=== PATIENT | male | born 1955 | race Hispanic/Latino ===

== ENCOUNTER 2022-04-10 19:14 | Emergency (ER) | payer OTHER ==
[2022-04-10] MEDS ORDERED: MORPHINE 4 MG/ML SYR ONE (19:40)
[2022-04-10] MEDS ORDERED: NA CHLORIDE 0.9% 1,000 ML ONE (19:40)
[2022-04-10] MEDS ORDERED: TETANUS & DIPHTHERIA TOX,ADULT 0.5 ML VIAL ONE (19:52)
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
[2022-04-10] MEDS ORDERED: DIAZEPAM 5 MG TABLET ONE (21:09)
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
[2022-04-10] MEDS ORDERED: cloNIDine HCL 0.1 MG TAB ONE (21:32)
[2022-04-10 22:31] VITALS: TEMP 97.4
[2022-04-10 22:32] VITALS: O2SAT 99
[2022-04-10 22:33] VITALS: BP 184/99
== END 2022-04-10 21:54 | disposition home or self-care (01) ==
LOC: ER 19:14
DX: S40.022A Contusion of left upper arm, initial encounter (principal); S40.021A Contusion of right upper arm, initial encounter; I10 Essential (primary) hypertension; V59.40XA Driver of pick-up truck or van injured in collision with unspecified motor vehicles in traffic accident, initial encounter; Z23 Encounter for immunization; Z88.6 Allergy status to analgesic agent
CPT/HCPCS: 96361; 82565; 70450; 72125; 71260; 74177; 90471; 90714; 96374; 99284; Q9967; J7030

== ENCOUNTER 2022-09-06 12:27 | Emergency (ER) | payer OTHER ==
--- NOTE | 2022-09-06 13:40 | RAD REPORT ---
EXAM DESCRIPTION: CT - Head Brain Wo Cont - 09/06/2022 1:05 pm CLINICAL HISTORY: HEADACHE. Hypertension COMPARISON: Head C Spine Cap W Con dated 04/10/2022 TECHNIQUE: Noncontrast head CT images ad were obtained without IV contrast. Multiplanar reformats we re generated and reviewed. All CT scans are performed using dose optimization technique as appropriate and may include automated exposure control or mA/KV adjustment according to patient size. FINDINGS: No intracranial hemorrhage, mass, or edema. Midline structures are unremarkable. Normal ventricular caliber for age. Bilateral parasagittal parietal regions of encephalomalacia, larger on the left, with cortical puncta te calcifications, stable since April 2022. These are nonspecific and could relate to sequelae of r emote ischemia or prior infection. Howard-white matter differentiation is otherwise preserved, without evidence of acute infarct. No abnormal extra-axial fluid collections. Mastoid air cells and visualized portions of the paranasal sinuses are clear. No acute bony findings. IMPRESSION: No evidence of an acute intracranial process. Stable chronic findings as above
[2022-09-06 13:41] LABS: Absolute Lymphocytes (CBC) 0.7 K/uL (0.7-4.9); Lymphocytes % 20.4 % (15.3-44.8); MCV 69.6 fL (80-100); MPV 6.8 fL (7.6-11.3); RBC Red Blood Cell Count 3.88 M/uL (4.33-5.43)
--- NOTE | 2022-09-06 13:43 | RAD REPORT ---
EXAM DESCRIPTION: Lu Single View09/06/2022 1:16 pm CLINICAL HISTORY: CHEST PAIN. Hypertension. Headache COMPARISON: No comparisons TECHNIQUE: Portable AP view of the chest. FINDINGS: The lungs are clear. No pneumothorax or effusion. The cardiomediastinal contours are unrem arkable. IMPRESSION: No acute cardiopulmonary process.
[2022-09-06 13:56] LABS: Magnesium 2.4 mg/dL (1.6-2.4); Potassium 3.6 mmol/L (3.5-5.1)
[2022-09-06 14:01] LABS: Troponin High Sensitivity 12.1 pg/mL (<58.9)
--- NOTE | 2022-09-06 14:09 | ER ---
Nurse's Notes [facility] Name: Mason Downey Age: 67 yrs Sex: Male : 1955 Arrival Date: 09/06/2022 Time: 12:30 Bed 17 Private MD: Diagnosis: Essential (primary) hypertension;Chest pain, unspecified;Headache Presentation: 09/06 12:55 Chief complaint: Patient states: Chest pain since last night. Pt reporting high blood ld1 pressure and headache. Upon arrival BP 222/101. Coronavirus screen: At this time, the client does not indicate any symptoms associated with coronavirus-19. Ebola Screen: No symptoms or risks identified at this time. Initial Sepsis Screen: Does the patient meet any 2 criteria? No. Patient's initial sepsis screen is negative. Does the patient have a suspected source of infection? No. Patient's initial sepsis screen is negative. Risk Assessment: Do you want to hurt yourself or someone else? Patient reports no desire to harm self or others. Onset of symptoms was September 06, 2022. 12:55 Method Of Arrival: Ambulatory ld1 12:55 Acuity: MADIHA 3 ld1 Triage Assessment: 12:55 Headache History: Denies prior headaches. General: Appears in no apparent distress. ld1 uncomfortable, Behavior is calm, cooperative, appropriate for age. Pain: Complains of pain in face and chest Pain does not radiate. Pain currently is 8 out of 10 on a pain scale. Quality of pain is described as throbbing, Pain began gradually, 1 day ago. Is continuous, Also complains of no other associated symptoms. EENT: No signs and/or symptoms were reported regarding the EENT system. Neuro: Level of Consciousness is awake, alert, obeys commands, Oriented to person, place, time, situation, Appropriate for age. Cardiovascular: Capillary refill < 3 seconds Patient's skin is warm and dry. Rhythm is sinus rhythm. Respiratory: Airway is patent Respiratory effort is even, unlabored. GI: Abdomen is round non-distended. : No signs and/or symptoms were reported regarding the genitourinary system. Derm: No signs and/or symptoms reported regarding the dermatologic system. Musculoskeletal: No signs and/or symptoms reported regarding the musculoskeletal system. Historical: - Allergies: 12:55 Aleve; ld1 12:55 Aspirin; ld1 12:55 Tylenol; ld1 - Home Meds: 12:55 metoprolol tartrate 37.5 mg Oral tab 1 tab once daily [Active]; ld1 - PMHx: 12:55 GERD; Hypertensive disorder; ld1 - PSHx: 12:55 None; ld1 - Immunization history:: Adult Immunizations up to date, Client reports receiving the 2nd dose of the Covid vaccine. - Social history:: Smoking status: Patient denies any tobacco usage or history of. Patient uses alcohol, on a daily basis. 12+ beers. Screenin:08 [facility] ED Fall Risk Assessment (Adult) History of falling in the last 3 months, db including since admission No falls in past 3 months (0 pts) Confusion or Disorientation No (0 pts) Intoxicated or Sedated No (0 pts) Impaired Gait. 14:18 Abuse screen: Denies threats or abuse. Denies injuries from another. Nutritional db screening: No deficits noted. Tuberculosis screening: No symptoms or risk factors identified. Assessment: 13:04 General: Appears in no apparent distress. comfortable, Behavior is calm, cooperative. db Pain:. Neuro: Level of Consciousness is awake, alert, obeys commands, Oriented to person, place, time, situation. Respiratory: Airway is patent Respiratory effort is even, unlabored, Respiratory pattern is regular, symmetrical. 14:18 Reassessment: Patient appears in no apparent distress at this time. Patient and/or db family updated on plan of care and expected duration. Pain level reassessed. Patient is alert, oriented x 3, equal unlabored respirations, skin warm/dry/pink. Patient states feeling better. Patient states symptoms have improved. Vital Signs: 12:55 BP 222 / 101; Pulse 85; Resp 14; Temp 98.7(O); Pulse Ox 98% on R/A; Weight 70.31 kg; ld1 Height 5 ft. 7 in. (170.18 cm); Pain 8/10; 13:19 BP 170 / 94; Pulse 77; Resp 16; Pulse Ox 99% on R/A; db 14:18 BP 184 / 98; Pulse 76; Resp 16; Pulse Ox 99% on R/A; db 12:55 Body Mass Index 24.28 (70.31 kg, 170.18 cm) ld1 Vitals: 14:18 Cardiac Rhythm Assessment Regular. db ED Course: 12:30 Patient arrived in ED. am2 12:33 Scott Lerner DO is Attending Physician. ms3 12:51 Keisha Reed, RN is Primary Nurse. db 12:55 Triage completed. ld1 12:55 Arm band placed on right wrist. ld1 13:06 CT Head Brain wo Cont In Process Unspecified. EDMS 13:14 EKG done, by ED staff, reviewed by Scott Lerner DO. em1 13:18 XRAY Chest (1 view) In Process Unspecified. EDMS 13:30 Patient has correct armband on for positive identification. Bed in low position. Call db light in reach. Side rails up X 1. Client placed on continuous cardiac and pulse oximetry monitoring. NIBP monitoring applied. Warm blanket given. 13:30 Inserted saline lock: 20 gauge in right antecubital area, using aseptic technique. db Blood collected. 14:18 No provider procedures requiring assistance completed. IV discontinued, intact, db bleeding controlled, No redness/swelling at site. Administered Medications: No medications were administered Medication: 13:19 VIS not applicable for this client. db Outcome: 14:08 Discharge ordered by MD. ms3 14:18 Discharged to home ambulatory, with family. db 14:18 Condition: stable 14:18 Discharge instructions given to patient, Instructed on discharge instructions, follow up and referral plans. 14:20 Patient left the ED. db Signatures: Dispatcher [employer] EDMS Kendell Manning em1 Ancelmo Garciaanda am2 Scott Lerner DO DO ms3 Patricia Luna RN RN ld1 Keisha Reed, RN RN db Corrections: (The following items were deleted from the chart) 13:09 13:04 Reassessment: Patient appears in no apparent distress at this time. Patient db and/or family updated on plan of care and expected duration. Pain level reassessed. Patient is alert, oriented x 3, equal unlabored respirations, skin warm/dry/pink. PATIENT states feels better. Denies dizziness denies pain db 13:09 13:00 BP 139 / 82 Standing; Pulse 72bpm; db db 13:09 12:50 BP 152 / 80 Supine; Pulse 66bpm; Resp 16bpm; Pulse Ox 100% RA; db db 13:09 12:55 BP 148 / 83 Sitting; Pulse 76bpm; db db
--- NOTE | 2022-09-06 14:09 | EDPHYS ---
Physician Documentation [facility] Name: Mason Downey Age: 67 yrs Sex: Male : 1955 Arrival Date: 09/06/2022 Time: 12:30 Bed 17 Private MD: ED Physician Scott Lerner HPI: 09/06 14:09 This 67 yrs old Male presents to ER via Ambulatory with complaints of High ms3 Blood Pressure, Headache. 14:09 67-year-old male with past medical history of hypertension, GERD presents for elevated ms3 blood pressure. Patient's highest noted blood pressure was 222/109. Patient states he took 50 mg of metoprolol 1 hour prior to arrival. Patient notes he has had a headache and chest pain that began last night. Patient rates his chest pain an 8/10 and describes it as indigestion and burning. Patient states he also has a generalized headache that he rates a 10/10. Patient endorses nausea. Patient denies vomiting.. Historical: - Allergies: 12:55 Aleve; ld1 12:55 Aspirin; ld1 12:55 Tylenol; ld1 - Home Meds: 12:55 metoprolol tartrate 37.5 mg Oral tab 1 tab once daily [Active]; ld1 - PMHx: 12:55 GERD; Hypertensive disorder; ld1 - PSHx: 12:55 None; ld1 - Immunization history:: Adult Immunizations up to date, Client reports receiving the 2nd dose of the Covid vaccine. - Social history:: Smoking status: Patient denies any tobacco usage or history of. Patient uses alcohol, on a daily basis. 12+ beers. ROS: 14:09 Constitutional: Negative for fever, and chills. Neck: Negative for injury, pain, and ms3 swelling, Respiratory: Negative for shortness of breath, cough, wheezing, and pleuritic chest pain. 14:09 Neuro: Negative for headache, weakness, numbness, tingling. 14:09 Cardiovascular: Positive for chest pain. 14:09 Abdomen/GI: Positive for indigestion. 14:09 All other systems are negative. Exam: 14:09 Constitutional: This is a well developed, well nourished patient who is awake, alert, ms3 and in no acute distress. Head/Face: Normocephalic, atraumatic. Neck: Trachea midline, no cervical lymphadenopathy. Supple, full range of motion without nuchal rigidity, or vertebral point tenderness. No Meningismus. Chest/axilla: Normal chest wall appearance and motion. Nontender with no deformity. Cardiovascular: Regular rate and rhythm with a normal S1 and S2. No gallops, murmurs, or rubs. Normal PMI, no JVD. No pulse deficits. Respiratory: Lungs have equal breath sounds bilaterally, clear to auscultation and percussion. No rales, rhonchi or wheezes noted. No increased work of breathing, no retractions or nasal flaring. Abdomen/GI: Soft, non-tender, with normal bowel sounds. No distension or tympany. No guarding or rebound. No evidence of tenderness throughout. Skin: Warm, dry with normal turgor. Normal color with no rashes, no lesions, and no evidence of cellulitis. Neuro: Awake and alert, GCS 15, oriented to person, place, time, and situation. Cranial nerves II-XII grossly intact. Motor strength 5/5 in all extremities. Sensory grossly intact. Cerebellar exam normal. Normal gait. 14:12 ECG was reviewed by the Attending Physician. ms3 Vital Signs: 12:55 BP 222 / 101; Pulse 85; Resp 14; Temp 98.7(O); Pulse Ox 98% on R/A; Weight 70.31 kg; ld1 Height 5 ft. 7 in. (170.18 cm); Pain 8/10; 13:19 BP 170 / 94; Pulse 77; Resp 16; Pulse Ox 99% on R/A; db 14:18 BP 184 / 98; Pulse 76; Resp 16; Pulse Ox 99% on R/A; db 12:55 Body Mass Index 24.28 (70.31 kg, 170.18 cm) ld1 MDM: 12:43 Patient medically screened. ms3 13:09 Independent interpretation of the following test(s) in the Emergency Department CT ms3 Scan: My interpretation is CT Head images reviewed by me: Negative for ICH.. 14:09 Differential diagnosis: hypertensive crisis, CVA, intracerebral hemorrhage. Data ms3 reviewed: vital signs, nurses notes, lab test result(s), EKG, radiologic studies, and as a result, I will discharge patient. Consideration of Admission/Observation Escalation of care including admission/observation considered. Patient troponin negative, EKG without ischemia, CT head negative. Counseling: I had a detailed discussion with the patient and/or guardian regarding: the historical points, exam findings, and any diagnostic results supporting the discharge/admit diagnosis, lab results, radiology results, the need for outpatient follow up, to return to the emergency department if symptoms worsen or persist or if there are any questions or concerns that arise at home. ED course: Discussed CT head, chest x-ray, EKG, labs with patient and his son. Patient to follow-up with his primary care physician in 2 to 3 days. Patient and his son understand and agree with plan. All questions were answered. Return precautions discussed include worsening symptoms, or any other concerns. On reevaluation patient is alert and oriented x4, no apparent distress, nontoxic, ambulatory in emergency room, speaking full sentences.. 09/06 12:44 Order name: Basic Metabolic Panel; Complete Time: 14:02 ms3 09/06 12:44 Order name: CBC with Diff ms3 09/06 12:44 Order name: Magnesium; Complete Time: 14:02 ms3 09/06 12:44 Order name: Troponin HS; Complete Time: 14:02 ms3 09/06 12:44 Order name: XRAY Chest (1 view); Complete Time: 13:46 ms3 09/06 12:44 Order name: CT Head Brain wo Cont; Complete Time: 13:46 ms3 09/06 12:44 Order name: EKG; Complete Time: 12:44 ms3 09/06 12:44 Order name: Cardiac monitoring; Complete Time: 12:57 ms3 09/06 12:44 Order name: EKG - Nurse/Tech; Complete Time: 13:14 ms3 09/06 12:44 Order name: IV Saline Lock; Complete Time: 13:04 ms3 09/06 12:44 Order name: Labs collected and sent; Complete Time: 13:04 ms3 09/06 12:44 Order name: O2 Per Protocol; Complete Time: 12:57 ms3 09/06 12:44 Order name: O2 Sat Monitoring; Complete Time: 12:57 ms3 EC:12 Rate is 81 beats/min. Rhythm is regular. QRS [place] is Normal. OK interval is normal. QRS ms3 interval is normal. Clinical impression: NSR w/ Non-specific ST/T Changes. Interpreted by me. Reviewed by me. Administered Medications: No medications were administered Disposition Summary: 09/06/22 14:08 Discharge Ordered Location: Home ms3 Condition: Stable ms3 Diagnosis - Essential (primary) hypertension ms3 - Chest pain, unspecified ms3 - Headache ms3 Followup: ms3 - With: Private Physician - When: 2 - 3 days - Reason: Recheck today's complaints Discharge Instructions: - Discharge Summary Sheet ms3 - Nonspecific Chest Pain, Adult ms3 - General Headache Without Cause ms3 - Hypertension, Adult ms3 Forms: - Medication Reconciliation Form ms3 - Work release form iw - Thank You Letter ms3 - Antibiotic Education ms3 - Prescription Opioid Use ms3 Signatures: Dispatcher [employer] Scott Ramirez DO DO ms3 Patricia Luna, RN RN ld1
[2022-09-06 14:25] VITALS: TEMP 98.7
[2022-09-06 14:26] VITALS: O2SAT 99
[2022-09-06 14:27] VITALS: BP 184/98
[2022-09-06 14:41] LABS: White Blood Cell Scan OK (OK)
[2022-09-06 14:42] LABS: Platelet Estimate ADEQ
[2022-09-06 14:43] LABS: Anisocytosis 1+; Blood Morphology Comment NOTED (NOT SEEN)
--- NOTE | 2022-09-06 18:45 | EKG ---
Test Date: 2022-09-06 Test Time: 13:12:28 Senior Technical Business Analyst: JUDY MEASUREMENT RESULTS: Intervals: Rate: 81 WI: 160 QRSD: 88 QT: 416 QTc: 483 Lutz: P: 81 WI: 160 QRS: 45 T: 38 INTERPRETIVE STATEMENTS: Normal sinus rhythm Prolonged QT Abnormal ECG No previous ECG available for comparison Electronically Signed On 09-06-22 18:41:56 LEAF BINNER by Jez Yeboah
== END 2022-09-06 14:20 | disposition home or self-care (01) ==
LOC: ER 12:27
DX: I10 Essential (primary) hypertension (principal); R07.89 Other chest pain; R51.9 Headache, unspecified; Z88.6 Allergy status to analgesic agent
CPT/HCPCS: 36415; 70450; 71045; 80048; 83735; 84484; 85025; 93005; 99284

== ENCOUNTER 2023-05-07 14:24 | Emergency (ER) | payer OTHER ==
--- OUTSIDE RECORDS SUMMARY | 2023-05-07 15:06 | XMS REPORT | Continuity of Care Document ---
:1955 Author Organization [facility] t Address [address] [place] [address] [place] [id number] Care Team Providers Name Role Phone Unavailable Unavailable Unavailable Problems This patient has no known problems. Allergies, Adverse Reactions, Alerts This patient has no known allergies or adverse reactions. Medications This patient has no known medications. Procedures This patient has no known procedures. Encounters Start End Encounter Admission Attending Care Care Encounter Source Date/Time Date/Time Type Type Clinicians Facility Department ID 2023-03-09 2023-03-09 Outpatient [facility] SFA [id number] Nolan Voss 14:56:04 14:56:04 0830 [facility] Results This patient has no known results.
[2023-05-07 15:21] LABS: Absolute Lymphocytes (CBC) 1.9 K/uL (0.7-4.9); Hematocrit 29.4 % (39.6-49.0); MCV 77.3 fL (80-100); MPV 7.2 fL (7.6-11.3); Platelets 198 thou/uL (152-406); RBC Red Blood Cell Count 3.81 M/uL (4.33-5.43)
[2023-05-07 15:28] LABS: Protime INR 1.04
[2023-05-07 15:31] LABS: Transitional Epithelial <5 /HPF (None Seen); Urine Bacteria None Seen /HPF (<20); Urine Bilirubin NEGATIVE (Negative); Urine Blood 2+ (Negative); Urine Clarity Turbid (Clear); Urine Color Light-Yellow (Yellow); Urine Glucose NEGATIVE (Negative); Urine Mucus Slight /HPF (None Seen); Urine Protein 2+ (Negative); Urine RBC <5 /HPF (None Seen); Urine Urobilinogen Normal (Normal); Urine pH 5.5 (5.0-7.0)
[2023-05-07 15:39] LABS: Barbiturates NEGATIVE (NEGATIVE); Benzodiazepines NEGATIVE (NEGATIVE); Cocaine NEGATIVE (NEGATIVE); METHAMPHETAM NEGATIVE (NEGATIVE); Opiates NEGATIVE (NEGATIVE); Phencyclidine NEGATIVE (NEGATIVE); THC Cannibis NEGATIVE (NEGATIVE)
[2023-05-07 15:39] LABS: ALT/SGPT 47 U/L (16-61); AST/SGOT 69 U/L (15-37); Albumin 3.6 g/dL (3.4-5.0); Alkaline Phosphatase 97 U/L (45-117); BUN Blood Urea Nitrogen 5 mg/dL (7-18); Bicarbonate 23 mEq/L (21-32); Bilirubin Direct 0.2 mg/dL (0-0.2); Bilirubin Indirect, Calculated 0.6 mg/dL (0.2-0.8); Bilirubin Total 0.8 mg/dL (0.2-1.0); Glomerular Filtration Rate 76 ml/min (=/>90); Glucose Level 109 mg/dL (74-106); Potassium 3.7 mEq/L (3.5-5.1); Protein, Total 8.4 g/dL (6.4-8.2); Sodium Level 128 mEq/L (136-145)
[2023-05-07] MEDS ORDERED: THIAMINE 200 MG/2 ML INJ ONE (15:39)
[2023-05-07] MEDS ORDERED: MULTIVITAMINS 10 ML VIAL (INJ) IV ONE (15:39)
[2023-05-07] MEDS ORDERED: FOLIC ACID 5 MG/ML VIAL ONE (15:40)
[2023-05-07] MEDS ORDERED: NA CHLORIDE 0.9% 1,000 ML ONE (15:40)
[2023-05-07 15:58] LABS: Methadone ND (NEGATIVE)
--- NOTE | 2023-05-07 16:24 | ER ---
Nurse's Notes [facility] Name: Mason Downey Age: 68 yrs Sex: Male : 1955 Arrival Date: 05/07/2023 Time: 14:24 Bed 4 Private MD: Diagnosis: Traumatic subdural hemorrhage Presentation: 05/07 14:50 Initial Sepsis Screen: Does the patient meet any 2 criteria? No. Patient's initial ld1 sepsis screen is negative. Does the patient have a suspected source of infection? No. Patient's initial sepsis screen is negative. 14:51 Chief complaint: EMS states: toned out to patient home for swelling to face. Family aa5 reports patient drinking 60 beers over the past 24-48 hours. Coronavirus screen: At this time, the client does not indicate any symptoms associated with coronavirus-19. Ebola Screen: No symptoms or risks identified at this time. Risk Assessment: Do you want to hurt yourself or someone else? Patient reports no desire to harm self or others. Onset of symptoms was May 07, 2023. 14:51 Method Of Arrival: EMS: [facility] aa5 14:51 Acuity: MADIHA 3 aa5 Triage Assessment: 14:50 General: Appears in no apparent distress. comfortable, Behavior is cooperative, ld1 appropriate for age. Pain: Denies pain. EENT: facial swelling. Neuro: Level of Consciousness is awake, alert, obeys commands, Oriented to person, place, time, situation. Cardiovascular: Capillary refill < 3 seconds Patient's skin is warm and dry. Respiratory: Airway is patent Respiratory effort is even, unlabored. : No signs and/or symptoms were reported regarding the genitourinary system. Derm: No signs and/or symptoms reported regarding the dermatologic system. swelling to eyes. Musculoskeletal: No signs and/or symptoms reported regarding the musculoskeletal system. 14:50 GI: Abdomen is round non-distended. ld1 Historical: - Allergies: 14:50 Aleve; aa5 14:50 Aspirin; aa5 14:50 Tylenol; aa5 - PMHx: 14:50 GERD; Hypertensive disorder; aa5 - Immunization history:: Adult Immunizations up to date. - Social history:: Smoking status: Patient denies any tobacco usage or history of. Patient/guardian denies using alcohol. Screenin:53 [facility] ED Fall Risk Assessment (Adult) History of falling in the last 3 months, aa5 including since admission No falls in past 3 months (0 pts). Abuse screen: Denies threats or abuse. Denies injuries from another. Nutritional screening: No deficits noted. Tuberculosis screening: No symptoms or risk factors identified. Assessment: 14:50 Reassessment: See triage assessment. ld1 15:22 Reassessment: Patient appears in no apparent distress at this time. No changes from ld1 previously documented assessment. Patient and/or family updated on plan of care and expected duration. Pain level reassessed. Patient is alert, oriented x 3, equal unlabored respirations, skin warm/dry/pink. Pt intoxicated at this time. Cooperative and calm, unable to stand by self at this moment. Family at bedside. 16:33 Reassessment: No changes from previously documented assessment. Patient and/or family ld1 updated on plan of care and expected duration. Pain level reassessed. Pt displaying signs of anxiety post CT scan. AAOx4. Family at bedside. 16:45 Reassessment: Life flight ETA 28 minutes . jl7 17:20 Reassessment: Patient appears in no apparent distress at this time. No changes from ld1 previously documented assessment. Patient and/or family updated on plan of care and expected duration. Pain level reassessed. Patient is alert, oriented x 3, equal unlabored respirations, skin warm/dry/pink. 17:21 Neuro:. ld1 Vital Signs: 15:21 BP 185 / 99; Pulse 108; Resp 18; Pulse Ox 98% on R/A; aa5 15:21 Weight 75 kg; Height 5 ft. 7 in. ; Pain 0/10; aa5 15:21 Temp 98.3(O); aa5 16:35 BP 153 / 91; Pulse 110; Resp 19; Pulse Ox 97% on R/A; ld1 17:20 BP 174 / 83; Pulse 102; Resp 16; Pulse Ox 100% on R/A; ld1 15:21 Body Mass Index 25.90 (75.00 kg, 170.18 cm) aa5 15:21 Pain Scale: Adult aa5 Glilian Coma Score: 15:21 Eye Response: spontaneous(4). Motor Response: obeys commands(6). Verbal Response: ld1 oriented(5). Total: 15. 17:23 Eye Response: spontaneous(4). Motor Response: obeys commands(6). Verbal Response: ld1 oriented(5). Total: 15. ED Course: 14:50 Patient arrived in ED. aa5 14:50 Arm band placed on right wrist. aa5 14:51 [facility] sb4 14:51 Garrick Hua MD is Attending Physician. sb4 14:53 Triage completed. aa5 14:53 Patient has correct armband on for positive identification. Placed in gown. Bed in low aa5 position. Call light in reach. Side rails up X2. property assessment monitor on. Pulse ox on. NIBP on. Door closed. Noise minimized. Warm blanket given. 14:53 No provider procedures requiring assistance completed. Inserted saline lock: 20 gauge aa5 in left antecubital area, using aseptic technique. Blood collected. 15:21 Straight cath inserted, using sterile technique, 16 Fr. Specimen obtained. Returned aa5 clear yellow urine. Patient tolerated well. 16:21 initiated a transfer with Melissa Gerardo Rn from the [facility] Transfer [place]. eb 16:23 Head Brain Wo Cont CT In Process Unspecified. EDMS 16:26 Patricia Lerner, JOSE M is Primary Nurse. ld1 16:31 connected the neurosurgeon unionmelt operator for [facility] ER with Nikki Hicks for patient transfer consultation. 16:32 administrative approval given by Melissa Gerardo Rn/ patient has been accepted to [facility]/ Dr. Carlos Bailey has accepted the patient in transfer/ report to be called to [phone]. 16:41 Inserted saline lock: 20 gauge in right forearm, using aseptic technique. ls5 17:21 Patient transferred, IV remains in place. ld1 Administered Medications: 15:30 Drug: Banana Bag - (Multivitamin IV 1 amp, NS 0.9% IV 1000 ml, Thiamine IV 100 mg, rs5 foLIC Acid IVPB 1 mg) IV at calculated rate once Route: IV; Rate: calculated rate; Site: left antecubital; Medication: 14:53 VIS not applicable for this client. aa5 Outcome: 16:23 ER care complete, transfer ordered by . sb4 17:20 Transferred by helicopter to [facility], ld1 17:20 Condition: unchanged 17:20 Discharge instructions given to patient, Instructed on the need for transfer, 17:30 Patient left the ED. ld1 Signatures: Dispatcher [employer] EDMS Jailene Stanley RN RN aa5 Jeff Jama RN RN jl7 Yomaira Garcia Lauren, RN RN ld1 Nikki Castillo, Phi Benitez PA-C, RN RN rs5 Magdy Corral ls5 Corrections: (The following items were deleted from the chart) 16:25 14:54 Jailene Stanley RN is Primary Nurse. tom mckenna 16:26 16:26 Primary Nurse role handed off by Jailene Stanley RN ld1 ld1 16:26 14:51 Chief complaint: EMS states: toned out to patient home for swelling to face. ld1 Family reports patient drinking 60 beers over the past 24-48 hours. [facility] 16: 14:50 General: Appears in no apparent distress. comfortable, Behavior is cooperative, ld1 appropriate for age, aa : 14:50 Pain: Denies pain. [facility] 16: 14:50 EENT: facial swelling. [facility] 16: 14:50 Neuro: Level of Consciousness is awake, alert, obeys commands, Oriented to ld1 person, place, time, situation, aa 16: 14:50 Cardiovascular: Capillary refill < 3 seconds Patient's skin is warm and dry. [facility] 16: 14:50 Respiratory: Airway is patent Respiratory effort is even, unlabored, [place] [id number] 16: 14:50 GI: Abdomen is round non-distended, aa5 ld1 16: 14:50 : No signs and/or symptoms were reported regarding the genitourinary system. [id number] 16: 14:50 Derm: No signs and/or symptoms reported regarding the dermatologic system. ld1 swelling to eyes aa 16: 14:50 Musculoskeletal: No signs and/or symptoms reported regarding the musculoskeletal ld1 system. aa5 16: 14:53 Reassessment: See triage assessment [place] [id number] 16:28 15:22 Reassessment: Patient appears in no apparent distress at this time. No changes ld1 from previously documented assessment. Patient and/or family updated on plan of care and expected duration. Pain level reassessed. Patient is alert, oriented x 3, equal unlabored respirations, skin warm/dry/pink. Pt intoxicated at this time. Cooperative and calm, unable to stand by self at this moment. Family at bedside. aa5
--- NOTE | 2023-05-07 16:24 | EDPHYS ---
Physician Documentation [facility] Name: Mason Downey Age: 68 yrs Sex: Male : 1955 Arrival Date: 05/07/2023 Time: 14:24 Bed 4 Private MD: ED Physician Garrick Hua HPI: 05/08 14:14 This 68 yrs old Male presents to ER via EMS with complaints of ETOH Abuse, sb4 Facial Swelling. 14:14 patient presents via EMS altered/intoxicated. family called EMS because he supposedly sb4 has drank at least 60 beers over the past 24 hours, has fallen a few times, and now has facial swelling. patient has no complaints at this time, is not sure why he is here, denies consuming any etoh. Historical: - Allergies: 05/07 14:50 Aleve; aa5 14:50 Aspirin; aa5 14:50 Tylenol; aa5 - PMHx: 14:50 GERD; Hypertensive disorder; aa5 - Immunization history:: Adult Immunizations up to date. - Social history:: Smoking status: Patient denies any tobacco usage or history of. Patient/guardian denies using alcohol. ROS: 05/08 14:14 Constitutional: Negative for fever, chills, and weight loss, sb4 Neuro: Positive for altered mental status, All other systems are negative, Exam: 14:14 Constitutional: This is a well developed, well nourished patient who is awake, alert, sb4 and in no acute distress. Head/Face: Normocephalic, atraumatic. Eyes: Extra-ocular motions intact. Periorbital areas with no swelling, redness, or edema. ENT: Mucous membranes moist. Cardiovascular: Regular rate and rhythm with a normal S1 and S2. Respiratory: Lungs have equal breath sounds bilaterally, clear to auscultation and percussion. No rales, rhonchi or wheezes noted. No increased work of breathing, no retractions or nasal flaring. Abdomen/GI: Soft, non-tender, no distension. Skin: Warm, dry with normal turgor. Normal color with no rashes, no lesions, and no evidence of cellulitis. MS/ Extremity: Pulses equal, no cyanosis. Neurovascular intact. Full, normal range of motion. 14:14 Constitutional: The patient appears unkempt, 14:14 Neuro: 14:14 Neuro: Exam negative for focal neuro deficits, motor deficits, sensory deficits, cerebellar deficits, Vital Signs: 05/07 15:21 BP 185 / 99; Pulse 108; Resp 18; Pulse Ox 98% on R/A; aa5 15:21 Weight 75 kg; Height 5 ft. 7 in. ; Pain 0/10; aa5 15:21 Temp 98.3(O); aa5 16:35 BP 153 / 91; Pulse 110; Resp 19; Pulse Ox 97% on R/A; ld1 17:20 BP 174 / 83; Pulse 102; Resp 16; Pulse Ox 100% on R/A; ld1 15:21 Body Mass Index 25.90 (75.00 kg, 170.18 cm) aa5 15:21 Pain Scale: Adult aa5 Gillian Coma Score: 15:21 Eye Response: spontaneous(4). Motor Response: obeys commands(6). Verbal Response: ld1 oriented(5). Total: 15. 17:23 Eye Response: spontaneous(4). Motor Response: obeys commands(6). Verbal Response: ld1 oriented(5). Total: 15. MDM: 14:51 Patient medically screened. sb4 05/08 14:14 Differential diagnosis: alcohol intoxication, closed head injury, dehydration. Data sb4 reviewed: vital signs, nurses notes, EMS record, lab test result(s), EKG, radiologic studies, I have discussed the patient's presentation/case with the attending Emergency Department Physician; and as a result, I will. Management of patient was discussed with the following: Hospitalist: neurosurgery at [facility], accepts patient. Historians other than the Patient: Daughter/Son: daughter. Care significantly affected by the following chronic conditions: Hypertension. Counseling: I had a detailed discussion with the patient and/or guardian regarding the historical points, exam findings, and any diagnostic results supporting the discharge/admit diagnosis, the presence of at least one elevated blood pressure reading (>120/80) during this emergency department visit, lab results, radiology results, the need to transfer to another facility, for higher level of care, [facility] does not immediately have the required specialist. 05/07 14:56 Order name: Acetaminophen; Complete Time: 16:06 sb4 05/07 14:56 Order name: Basic Metabolic Panel; Complete Time: 16:06 sb4 05/07 14:56 Order name: CBC with Diff; Complete Time: 15:45 sb4 05/07 14:56 Order name: ETOH Level; Complete Time: 16:06 sb4 05/07 14:56 Order name: Hepatic Function; Complete Time: 16:06 sb4 05/07 14:56 Order name: PT-INR; Complete Time: 15:45 sb4 05/07 14:56 Order name: Ptt, Activated; Complete Time: 15:45 sb4 05/07 14:56 Order name: Salicylate; Complete Time: 15:45 sb4 05/07 14:56 Order name: Urinalysis w/ reflexes; Complete Time: 15:45 sb4 05/07 14:56 Order name: Urine Drug Screen; Complete Time: 16:06 sb4 05/07 15:02 Order name: Troponin HS; Complete Time: 15:45 sb4 05/07 15:01 Order name: Head Brain Wo Cont CT; Complete Time: 16:36 sb4 05/07 14:56 Order name: EKG; Complete Time: 14:57 sb4 05/07 14:56 Order name: EKG - Nurse/Tech; Complete Time: 15:01 sb4 05/07 14:56 Order name: IV Saline Lock; Complete Time: 15:01 sb4 05/07 14:56 Order name: Labs collected and sent; Complete Time: 15:01 sb4 05/07 14:56 Order name: Suicide Screening ([place]); Complete Time: 15:01 sb4 EC/28 18:31 Rate is 111 beats/min. Rhythm is regular, Sinus tachycardia. DE interval is normal at sb4 116 msec. QRS interval is normal at 80 msec. QT interval is normal at 462 msec. No Q waves. T waves are Normal. No ST changes noted. Clinical impression: Sinus tachycardia and No evidence of ischemia. Interpreted by me. Reviewed by me. Administered Medications: 15:30 Drug: Banana Bag - (Multivitamin IV 1 amp, NS 0.9% IV 1000 ml, Thiamine IV 100 mg, rs5 foLIC Acid IVPB 1 mg) IV at calculated rate once Route: IV; Rate: calculated rate; Site: left antecubital; Disposition Summary: 05/07/23 16:23 Transfer Ordered Notes: Transfer Location: [facility] sb4 Reason: Higher level of care sb4 Condition: Serious sb4 Problem: new sb4 Symptoms: are unchanged sb4 Accepting Physician: Dr. Bailey(05/07/23 17:30) ld1 Diagnosis - Traumatic subdural hemorrhage sb4 Forms: - Medication Reconciliation Form sb4 - SBAR form sb4 Addendum: 05/09/2023 10:51 Co-signature as Attending Physician, Garrick Hua MD I reviewed the patient's care e c2 provided by Advanced Practice Provider \T\ agree w/ the diagnosis \T\ care plan. I personally saw the pt \T\ performed a substantive portion of the visit, incldng all aspects of the (History/Exam/Medical Decision Making). Signatures: Dispatcher [employer] Jailene Rodríguez, RN RN aa5 Patricia Lerner RN RN ld1 Nikki Castillo, PAAlanaC PAAlanaC sb4 Phi Buitrago RN RN rs5 Garrick Hua MD MD ec2 Corrections: (The following items were deleted from the chart) 05/07 16:25 14:57 Facial Bones W/ Con \T\ MPR+CT.RAD.BRZ ordered. EDME EDMS 16:32 16:23 trauma sb4 sb4 17:30 16:32 Dr. Bailey sb4 ld1
--- NOTE | 2023-05-07 16:35 | RAD REPORT ---
EXAM DESCRIPTION: CT - Head Brain Wo Cont - 05/07/2023 4:21 pm CLINICAL HISTORY: CONFUSED COMPARISON: Head Brain Wo Cont dated 09/06/2022 TECHNIQUE: All CT scans are performed using dose optimization technique as appropriate and may inclu de automated exposure control or mA/KV adjustment according to patient size. FINDINGS: Acute extra-axial hemorrhage along the left cerebral convexity primarily along the left fr ontal lobe where there is the most mass-effect. This measures 2.5 cm in maximal thickness and has a c onvex border. It does cross the sutures and is present along the left parietal lobe. Xfbd-ip-qzavo mi dline shift is present with subfalcine herniation and effacement of the left lateral ventricle. Mild right lateral ventricular dilatation with hypoattenuation along the right occipital horn that could r eflect early transependymal flow of CSF. There is approximately 1 cm of cers-ua-izbet shift. The paranasal sinuses and mastoids are clear. The calvarium is intact. IMPRESSION: Acute extra-axial hemorrhage along the left frontoparietal lobes with zsri-xu-ovtso midl ine shift and evidence of subfalcine herniation. Though the hemorrhage does have a convex component, it crosses the suture lines and is most consistent with an acute subdural hematoma. No skull fracture identified. Discussed with Dr. Hua by Dr. Cespedes at 1630 on 05/07/23
[2023-05-07 17:35] VITALS: TEMP 98.3
[2023-05-07 17:39] VITALS: BP 174/83; O2SAT 100
--- NOTE | 2023-05-10 07:58 | EKG ---
Test Date: 2023-05-07 Test Time: 14:58:06 Financial Aid Advisor: Zora PADGETT MEASUREMENT RESULTS: Intervals: Rate: 111 DE: 116 QRSD: 80 QT: 340 QTc: 462 Otto: P: 60 DE: 116 QRS: 34 T: 16 INTERPRETIVE STATEMENTS: Sinus tachycardia Otherwise normal ECG Compared to ECG 09/06/2022 13:12:28 Sinus rhythm no longer present Prolonged QT interval no longer present Electronically Signed On 05-10-23 07:52:45 CDT by Jez Yeboah
== END 2023-05-07 17:30 | disposition short-term general hospital (02) ==
LOC: ER 14:24
DX: S06.5X0A Traumatic subdural hemorrhage without loss of consciousness, initial encounter (principal); I10 Essential (primary) hypertension; Z88.6 Allergy status to analgesic agent
CPT/HCPCS: 93005; 85025; 81001; 80048; 36415; 85610; 80076; 85730; 84484; 80307; 70450; 51702; 96374; 99285; 80143; 80179; 82077; J3411; J7030

== ENCOUNTER 2024-01-04 08:50 | Day surgery (SDC) | payer OTHER ==
[2024-01-04 09:02] LABS: Absolute Basophils 0.1 K/uL (0-0.5); Absolute Eosinophils 0.4 K/uL (0-0.5); Absolute Lymphocytes (CBC) 2.9 K/uL (0.7-4.9); Absolute Monocytes 0.7 K/uL (0.1-1.3); Absolute Neutrophil 2.7 K/uL (1.8-8.0); Eosinophils % 5.6 % (0-4.4); Hemoglobin 14.8 g/dL (13.6-17.9); Lymphocytes % 42.8 % (15.3-44.8); MCH 27.4 pg (27.0-35.0); MPV 8.1 fL (7.6-11.3); Monocytes % 9.8 % (3.3-12.3); Neutrophils % 40.8 % (41.7-73.7); Nucleated Red Blood Cells % 0.2 % (0-0); Platelets 266 thou/uL (152-406); RBC Red Blood Cell Count 5.42 M/uL (4.33-5.43); Red Cell Distribution Width 18.4 % (12.1-15.2)
--- NOTE | 2024-01-04 09:12 | RAD REPORT ---
EXAM DESCRIPTION: Lu Garcia (2 Views)01/04/2024 8:49 am CLINICAL HISTORY: Preop for cholecystectomy COMPARISON: 2022 FINDINGS: The lungs appear clear of acute infiltrate. The heart is normal size IMPRESSION: No acute abnormalities displayed
[2024-01-04 09:15] LABS: ALT/SGPT 22 U/L (16-61); AST/SGOT 14 U/L (15-37); Albumin 3.6 g/dL (3.4-5.0); Albumin/Globulin Ratio 0.8 (1.1-1.8); Alkaline Phosphatase 97 U/L (45-117); BUN Blood Urea Nitrogen 15 mg/dL (7-18); Bicarbonate 31 mEq/L (21-32); Bilirubin Total 0.8 mg/dL (0.2-1.0); Globulin 4.5 g/dL (2.3-3.5); Glomerular Filtration Rate 64 ml/min (=/>90); Glucose Level 109 mg/dL (74-106); Lipase 47 U/L (13-75); Protein, Total 8.1 g/dL (6.4-8.2); Sodium Level 137 mEq/L (136-145)
[2024-01-04 09:18] LABS: Bilirubin Direct < 0.2 mg/dL (0-0.2); Bilirubin Indirect, Calculated 0.6 mg/dL (0.2-0.8)
[2024-01-04] MEDS: Ringers Lactate 1,000 ML IV ONE (09:40)
[2024-01-04] MEDS ORDERED: LIDOCAINE 2% MPF 5 ML VIAL ONE (11:20)
[2024-01-04] MEDS ORDERED: MIDAZOLAM HCL 2 MG/2 ML INJ ONE (11:20)
[2024-01-04] MEDS ORDERED: ROCURONIUM 50 MG/5 ML VIAL IV ONE (11:20)
[2024-01-04] MEDS ORDERED: propofoL 200 MG/20 ML VIAL IV ONE (11:20)
[2024-01-04] MEDS ORDERED: FENTANYL CITR 100 MCG/2 ML ONE (11:20)
[2024-01-04] MEDS ORDERED: ONDANSETRON 4 MG/2 ML VIAL ONE (11:52)
[2024-01-04] MEDS: CEFOXITIN SODIUM 1 GM/VIAL ONE (12:10)
[2024-01-04] MEDS ORDERED: GLYCOPYRROLATE 0.2 MG/ML SYR ONE ×2 (12:15→12:41)
[2024-01-04] MEDS ORDERED: LABETALOL 20 MG/4ML SYRINGE IV ONE (12:37)
[2024-01-04] MEDS ORDERED: NEOSTIGMINE 1 MG/ML -10 ML VIAL ONE (12:41)
--- NOTE | 2024-01-04 12:48 | P.BOP ---
Preoperative diagnosis: symptomatic cholelithiasis, umbilical hernia Postoperative diagnosis: same Primary procedure: 1. Laparoscopic cholecystectomy Secondary procedure: 2. Open repair of umbilical hernia Driver Recruiter: Clarissa Deleon) Estimated blood loss: <10cc Specimen: sac Findings: as above Anesthesia: General Complications: None Transferred to: Recovery Room Condition: Good
[2024-01-04] MEDS: MORPHINE 4 MG/ML SYR ONE (13:20)
[2024-01-04] MEDS: HYDROMORPHONE HCL 1 MG/ML INJ ONE ×2 (13:35→13:45)
[2024-01-04] MEDS ORDERED: Ringers Lactate 1,000 ML IV ONE (13:36)
[2024-01-04 13:54] VITALS: O2SAT 95
[2024-01-04] MEDS: HYDROCODONE/APAP 7.5/325 MG TAB ONE (14:25)
[2024-01-04 15:28] VITALS: BP 124/87; TEMP 96.2
--- NOTE | 2024-01-04 23:41 | OP ---
Date of Procedure: 01/04/2024 Surgeon: Salvador Manning MD Analysis Analyst: GUSTAVO Rouse. Preoperative Diagnoses: Symptomatic cholelithiasis, umbilical hernia. Postoperative Diagnoses: Symptomatic cholelithiasis, umbilical hernia. Procedures: Laparoscopic cholecystectomy and open repair of umbilical hernia. Estimated Blood Loss: Less than 10 mL. Specimen: Hernia sac and gallbladder. Anesthesia: General plus local. Indications: This is the case of a 68-year-old patient, comes to us with above diagnoses, fully expl ained the benefits, alternatives, and risks of laparoscopic possible open cholecystectomy and umbilic al hernia repair, which include, but not limited to infection, bleeding, damage to adjacent structure s, anesthesia complication, recurrence of hernia, NV, and even . He also understands this may n ot relieve any symptoms. He might need more than one surgical intervention. He understood, signed a consent. Procedure In Detail: The patient was brought to the operating room and placed in supine position. A nesthesia was done without complication. Abdominal area was prepped and draped in sterile fashion. Local anesthesia was applied followed by sharp incision of the skin in the periumbilical region. Inc ision was carried down until we found the hernia sac. The hernia sac was removed away from umbilical skin and then the hernia sac was carefully ligated. Fascial edges were clean. Vicryl #1 was placed inside the fascia. Julius trocar was carefully introduced. No bleeding was obtained. I placed 3 m ore trocars, 5 mm each one of them, 1 in the epigastric area, 2 in the right upper quadrant under dir ect visualization. This allowed me to put a grasper in the fundus of the gallbladder, another graspe r in the infundibulum, and the gallbladder was retracted in the inferolateral fashion exposing the tr iangle of Calot. Cystic duct and cystic artery were clearly isolated free circumferentially, and a c onnection between those and the gallbladder were clearly identified. I proceeded to ligate those pos ing 3 clips proximal, 1 clip distal, ligation in middle. Same was done with the cystic artery. No b ile leak. No bleeding. The gallbladder was removed from liver using Bovie cauterizer and removed fr om abdominal cavity using EndoCatch through the umbilical incision. The area was then inspected. No bile leak. No bleeding. The pneumoperitoneum was deflated. Fascia was closed with #1 Vicryl after the trocars were removed under direct visualization and then the fascia was closed with #1 Vicryl an d umbilical hernia and also the skin was closed with 3-0 chromic and Steri-Strips. Sponge counts and instrument counts correct. The patient tolerated the procedure well. The patient was sent to [facility] in stable condition. FORTUNATO/ANASTACIO Voice ID: [id number] Report ID: [id number]
--- NOTE | 2024-01-04 23:41 | DS ---
Date of Discharge: 01/04/2024 Diagnoses: Symptomatic cholelithiasis, umbilical hernia. Procedures: Laparoscopic cholecystectomy, open repair of umbilical hernia. Disposition: Home. Condition: Stable. Activity: As tolerated. No heavy lifting. Follow up in my office in 1 week. Call for appointment at [phone]. FORTUNATO/ANASTACIO Voice ID: [id number] Report ID: [id number]
--- NOTE | 2024-01-05 14:11 | EKG ---
Test Date: 2024-01-04 Test Time: 08:40:26 Pacs Specialist: THUY MEASUREMENT RESULTS: Intervals: Rate: 58 HI: 156 QRSD: 92 QT: 426 QTc: 418 [place]: P: 65 HI: 156 QRS: -5 T: 49 INTERPRETIVE STATEMENTS: Sinus bradycardia Otherwise normal ECG Compared to ECG 05/07/2023 14:58:06 Sinus tachycardia no longer present Electronically Signed On 01-05-24 14:07:32 CDT by Jez Yeboah
== END 2024-01-04 15:13 | disposition home or self-care (01) ==
LOC: OR 08:50
PROVIDERS: ATTEND Surgery
PROC: 0FT44ZZ Resection of Gallbladder, Percutaneous Endoscopic Approach (ICD-10-PCS; principal; 2024-01-04 12:15)
PROC: 0WQF0ZZ Repair Abdominal Wall, Open Approach (ICD-10-PCS; 2024-01-04 12:15)
DX: K80.10 Calculus of gallbladder with chronic cholecystitis without obstruction (principal); K42.9 Umbilical hernia without obstruction or gangrene
CPT/HCPCS: 47562; 49591; 93005; 85025; 80048; 36415; 80076; 88302; 88304; 83690; 71046; J2704; J2710; J2001; J2250; J3010; J1170 ×2; J0694; J2405; J7120 ×2

== ENCOUNTER 2024-01-05 05:52 | Emergency (ER) | payer OTHER ==
--- OUTSIDE RECORDS SUMMARY | 2024-01-05 06:09 | XMS REPORT | Continuity of Care Document ---
Author Name Unknown Address [address] [facility] [address] [place] [address] [facility] Address [address] [facility] [address] [place] [address] Care Team Providers Care Utility Sales Representative Name Role Phone Rochelle Unger Primary Care Physician DENIA LEWIS NATASHA Attending Clinician Unava ilable [id number] Attending Clinician Unavailable COLLEEN BARILLAS Attending Clinician UnavailCOLLEEN Crump Attending Clinician UnavailDebbie Munguia Attending Clinician Unavailable Colleen Barillas MD Attending Clinician FAVIO MALIK Attending Clinician Unavailable Ash OTLindsay A Attending Clinician Unavail able Catracho Blevins PTElodia Attending Clinician Un available Doctor Unassigned, [place] Attending Clinician U navailDENIA Zimmer NATASHA Admitting Clinician Unava ilable [id number] Admitting Clinician Unavailable Payers Payer Name Policy Type Policy Number Effective Date Expirati on Date Source [facility] [id number] [employer] MEDICARE ADVANTAGE [id number] 2022 00:00:00 [facility] WELLMED [id number] 2022 00:00:00 Allergies, Adverse Reactions, Alerts Allergy Name Allergy Type Status Severity Reaction(s) Onset Date Inactive Date Treating Clinician Comments Source Nsaids Propensi ty to adverse reaction s Active Other 2022-07 00:00: 00 [facility] NO KNOWN ALLERGIE S Drug Class Active [facility] Social History Social Habit Start Date Stop Date Quantity Comments Source [facility] intake 2023-07-14 00:00:00 2023-07-14 00:00:00 Ex-drinker (finding) [facility] Tobacco use and exposure 2023-05-30 00:00:00 2023-05-30 00:00:00 Smokeless tobacco non-user [facility] Alcohol intake 2023-05-30 00:00:00 2023-05-30 00:00:00 Ex-drinker (finding) [facility] Alcohol Comment 2023-05-30 00:00:00 2023-05-30 00:00:00 socially [facility] History of Social function 2023-05-30 00:00:00 2023-05-30 00:00:00 [facility] Sex Ass[birth year] At 1955 00:00:00 1955 00:00:[address] [facility] Smoking Status Start Date Stop Date Source Tobacco smoking consumption unknown [facility] Never smoked tobacco [facility] Medications Ordered Medication Name Filled Medication Name Start Date Stop Date Current Medication? Ordering Clinician Indication Dosage Frequency Signature (SIG) Comments Components Source docusate sodium (Colace) 100 MG capsule 07-14 08:36: 50 Yes 100mg Q.5D Take 100 mg by mouth in the morning and 100 mg in the evening. [facility] ascorbic acid (Vitamin C) 500 MG tablet 07-14 08:36: 50 Yes 500mg QD Take 500 mg by mouth 1 (one) time each day. [facility] gabapentin (Neurontin) 100 MG capsule 07-14 00:00: 00 07-14 05:59 :00 No [id number] 100mg Q.5D Take 1 capsule (100 mg total) by mouth in the morning and 1 capsule (100 mg total) in the evening. [facility] docusate sodium (Colace) 100 MG capsule 2022-07 15:12: 26 Yes 100mg Q.5D Take 100 mg by mouth in the morning and 100 mg in the evening. [facility] ascorbic acid (Vitamin C) 500 MG tablet 2022-07 15:12: 26 Yes 500mg QD Take 500 mg by mouth 1 (one) time each day. [facility] scopolamine (Transderm- Scop) 1 MG/3DAYS patch 72 hour 2022-07 00:00: 00 Yes APPLY BEHIND EAR EVERY 3 DAYS FOR MOTION SICKNESS [facility] naltrexone (Depade) 50 MG tablet 2022-07 00:00: 00 Yes 50mg QD Take 50 mg by mouth 1 (one) time each day. [facility] Ascorbic Acid (vitamin C) 500 MG tablet 2022-07 00:00: 00 Yes 500mg QD Take 500 mg by mouth 1 (one) time each day. [facility] carvedilol (Coreg) 25 MG tablet 2022-07 00:00: 00 Yes 25mg Q.5D Take 25 mg by mouth every 12 (twelve) hours. [facility] lisinopril 20 MG tablet 2022-07 00:00: 00 Yes 40mg QD Take 40 mg by mouth 1 (one) time each day. [facility] potassium chloride CR (K-Tab) 20 MEQ ER tablet 2022-07 00:00: 00 Yes 20meq Take 20 mEq by mouth every night. [facility] sodium chloride 1 g tablet 2022-07 00:00: 00 Yes 3g Q.[id number] 3D Take 3 g by mouth in the morning and 3 g at noon and 3 g in the evening. [facility] thiamine (Vitamin B-1) 100 MG tablet 2022-07 00:00: 00 Yes 100mg QD Take 100 mg by mouth 1 (one) time each day. [facility] Zinc 220 (50 Zn) MG capsule 2022-07 00:00: 00 Yes 1{tbl} QD Take 1 tablet by mouth 1 (one) time each day. [facility] triamcinolo ne (Kenalog) 0.1 % cream 03-10 00:00: 00 Yes APPLY 1 APPLICATIO N ON THE SKIN TWICE A DAY APPLY TO AFFECTED AREAS [facility] terbinafine (LamISIL) 250 MG tablet 03-09 00:00: 00 Yes 250mg QD Take 250 mg by mouth 1 (one) time each day. [facility] valACYclovi r (Valtrex) 1 g tablet 03-09 00:00: 00 Yes 1000mg Q.[id number] 3D Take 1,000 mg by mouth in the morning and 1,000 mg at noon and 1,000 mg in the evening. [facility] sucralfate (Carafate) 1 g tablet 18 00:00: 00 Yes 1g Q.5D Take 1 g by mouth in the morning and 1 g before bedtime. [facility] finasteride (Proscar) 5 MG tablet 12-04 00:00: 00 Yes 5mg QD Take 5 mg by mouth 1 (one) time each day. [facility] metoprolol tartrate (Lopressor) 50 MG tablet 12-04 00:00: 00 Yes 50mg Q.5D Take 50 mg by mouth in the morning and 50 mg before bedtime. [facility] pantoprazol e (ProtoNix) 40 MG EC tablet 11-27 00:00: 00 Yes 40mg QD Take 40 mg by mouth 1 (one) time each day. [facility] Vital Signs Vital Name Observation Time Observation Value Comments S ource Systolic blood pressure 2023-07-14 14:34:00 111 mm[Hg] [facility] Diastolic blood pressure 2023-07-14 14:34:00 73 mm[Hg] [facility] Heart rate 2023-07-14 14:34:00 73 /min [facility] alth Body temperature 2023-07-14 14:34:00 36.67 Angelica [facility] Body height 2023-07-14 14:34:00 167.6 cm [facility] Body weight 2023-07-14 14:34:00 72.235 kg [facility] BMI 2023-07-14 14:34:00 25.70 kg/m2 [facility] Systolic blood pressure 2023-05-30 21:14:00 115 mm[Hg] [facility] Diastolic blood pressure 2023-05-30 21:14:00 76 mm[Hg] [facility] Heart rate 2023-05-30 21:14:00 66 /min [facility] Body weight 2023-05-30 21:14:00 67.586 kg [facility] BMI 2023-05-30 21:14:00 23.34 kg/m2 [facility] Oxygen saturation in Arterial blood by Pulse oximetry 2023-05-30 21:14:00 96 /min [facility] Procedures Procedure Date / Time Performed Performing Clinicia n Source ASSIGNMENT OF BENEFITS 2023-06-21 19:10:33 Docto r Unassigned, [place] [facility] Encounters Start Date/Time End Date/Time Encounter Type Admission Type Attending [facility] Facility Care Department Encounter ID Source 2023-05-14 09:05:13 Outpatient 3 [place] [id number] 2023-05-13 15:23:49 Outpatient 3 DENIA LEWIS [place] [id number] 2023-05-11 11:38:44 Outpatient 3 [id number] [place] [id number] 2023-09-01 14:00:00 2023-09-01 15:24:07 Outpatient R COLLEEN BARILLAS CRAIG [facility] [id number] [facility] 2023-09-01 14:00:00 2023-09-01 15:24:07 Ancillary Visit Debbie Kim [facility] 1..840.114 350.1.13.10 4.2.7.2.[id number] [facility] 2023-08-24 15:00:00 2023-08-24 15:31:56 Ancillary Visit Debbie Kim Craig L [facility] 1..840.114 350.1.13.10 4.2.7.2.[id number] [facility] 2023-08-17 15:00:00 2023-08-17 16:14:18 Ancillary Visit Debbie Kim Craig L [facility] 1..840.114 350.1.13.10 4.2.7.2.[id number] [facility] 2023-08-10 16:00:00 2023-08-10 16:47:28 Ancillary Visit Judy Colleen Alcazar Zora [facility] 1.2.840.114 350.1.13.10 4.2.7.2.[id number] [facility] 2023-08-03 16:00:00 2023-08-03 16:55:48 Ancillary Visit Judy Colleen Alcazar Zora [facility] 1.2.840.114 350.1.13.10 4.2.7.2.[id number] [facility] 2023-07-27 15:00:00 2023-07-27 15:58:10 Ancillary Visit Debbie Kim Craig Zora [facility] 1.2.840.114 350.1.13.10 4.2.7.2.[id number] [facility] 2023-07-20 16:00:00 2023-07-20 16:39:47 Ancillary Visit Judy Debbie BarillasColleen [facility] 1.2.840.114 350.1.13.10 4.2.7.2.[id number] [facility] 2023-07-14 11:00:00 2023-07-14 11:00:00 Outpatient FAVIO MALIK [facility] [id number] [facility] 2023-07-14 10:00:00 2023-07-14 10:00:00 Office Visit FAVIO MALIK [facility] [address] 1.2.840.114 350.1.13.58 9.2.7.2.686 [id number] [facility] 2023-07-13 14:00:00 2023-07-13 15:21:49 Outpatient COLLEEN FREEMAN CRAIG [facility] [id number] [facility] 2023-07-13 14:00:00 2023-07-13 15:21:49 Ancillary Visit Judy Debbie Barillas Colleen Zora [facility] 1.2.840.114 350.1.13.10 4.2.7.2.[id number] [facility] 2023-07-06 14:00:00 2023-07-06 15:04:03 Outpatient R COLLEEN BARILLAS CRAIG [facility] [id number] [facility] 2023-07-06 14:00:00 2023-07-06 15:04:03 Ancillary Visit Debbie Kim Craig L [facility] 1.2.840.114 350.1.13.10 4.2.7.2.[id number] [facility] 2023-06-29 14:00:00 2023-06-29 15:03:49 Ancillary Visit Debbie Kim Craig L [facility] 1.2.840.114 350.1.13.10 4.2.7.2.[id number] [facility] 2023-06-22 15:00:00 2023-06-22 16:28:47 Ancillary Visit Debbie Kim Craig Zora [facility] 1.2.840.114 350.1.13.10 4.2.7.2.[id number] [facility] 2023-06-21 13:45:00 2023-06-21 14:36:31 Outpatient R COLLEEN BARILLAS CRAIG [facility] [id number] [facility] 2023-06-21 13:45:00 2023-06-21 14:36:31 Ancillary Visit Lindsay Aleman, Colleen Zora [facility] 1.2840.114 350.1.13.10 4.2.7.2.[id number] [facility] 2023-06-21 13:00:00 2023-06-21 14:36:15 Outpatient R COLLEEN BARILLAS CRAIG [facility] [id number] [facility] 2023-06-21 13:00:00 2023-06-21 14:36:15 Ancillary Visit Catracho Gen Elodia Nargis Colleen L [facility] 1.284.114 350.1.13.10 4.2.7.2.[id number] [facility] 2023-06-21 00:00:00 2023-06-21 00:00:00 Orders Only Doctor Unassigned, [place] [facility] 1.0.114 350.1.13.10 4.2.7.2.[id number] [facility] 2023-06-06 10:00:00 2023-06-06 10:00:00 Outpatient FAVIO MALIK [facility] [id number] [facility] 2023-05-30 14:30:00 2023-05-30 14:30:00 Office Visit FAVIO MALIK [facility] [address] 1.284.114 350.1.13.58 9.2.7.2.686 [id number] [facility] 2023-05-17 17:37:00 2023-05-26 15:30:00 Inpatient 3 [place] [id number] 2023-05-10 00:00:00 2023-05-10 00:00:00 Charges Favio Malik [facility] [address] 1.2840.114 350.1.13.58 9.2.7.2.686 [id number] [facility] 2023-05-07 04:00:00 2023-05-07 04:00:00 Outpatient FAVIO MALIK [facility] [id number] [facility] 2023-03-09 14:56:04 2023-03-09 14:56:04 Outpatient SFA SFA [id number] Bipin Zuñiga Results Test Description Test Time Test Comments Results Result Co mments Source [facility]2023-05-26 13:20:00* Test Item Value Reference Range Interpretation Comme nts WHITE BLOOD CELL COUNT (test code = 46857712) 5.6 Thousand/uL 3.8-10.8 N RED BLOOD CELL COUNT (test code = 61348730) 3.36 Million/uL 4.20-5.80 L HEMOGLOBIN (test code = 12819383) 8.7 g/dL 13.2-17.1 L HEMATOCRIT (test code = 45752408) 28.3 % 38.5-50.0 L MCV (test code = 05395286) 84.2 fL 80.0-100.0 N MCH (test code = 97271593) 25.9 pg 27.0-33.0 L MCHC (test code = 17810393) 30.7 g/dL 32.0-36.0 L RDW (test code = 88098780) 16.9 % 11.0-15.0 H PLATELET COUNT (test code = 80881618) 543 Thousand/uL 140-400 H MPV (test code = 55613127) 11.2 fL 7.5-12.5 N ABSOLUTE NEUTROPHILS (test code = 98152394) 2156 cells/uL 5956-0356 N ABSOLUTE LYMPHOCYTES (test code = 15242737) 2733 cells/uL 850-3900 N ABSOLUTE MONOCYTES (test cod e = 53964363) 594 cells/uL 200-950 N ABSOLUTE EOSINOPHILS (test code = 59584389) 90 cells/uL 15-500 N ABSOLUTE BASOPHILS (test cod e = 08727441) 28 cells/uL 0-200 N NEUTROPHILS (test code = 87400489) 38.5 % N LYMPHOCYTES (test code = 86131764) 48.8 % N MONOCYTES (test code = 60939479) 10.6 % N EOSINOPHILS (test code = 82414794) 1.6 % N BASOPHILS (test code = 51232845) 0.5 % N [facility] [id number] 11:04:00* Test Item Value Reference Range Interpretation Comme nts GLUCOSE (test code = 12918525) 95 mg/dL 65-99 N Fasting referenc e interval UREA NITROGEN (BUN) (test code = 95996653) 11 mg/dL 7-25 N CREATININE (test code = 44531809) 0.90 mg/dL 0.70-1.35 N EGFR (test code = 51923503) 94 mL/min/1.73m2 >=60 N BUN/CREATININE RATIO (test code = 12476410) SEE NOTE: (calc) 6-22 N Not Reported: BUN and Creatinine are within reference range. SODIUM (test code = 82434574) 133 mmol/L 135-146 L POTASSIUM (test code = 16708872) 4.9 mmol/L 3.5-5.3 N CHLORIDE (test code = 80903477) 99 mmol/L 98-110 N CARBON DIOXIDE (test code = 44948473) 24 mmol/L 20-32 N CALCIUM (test code = 15184162) 9.0 mg/dL 8.6-10.3 N [facility] (DIFF/PLT)2023-05-23 11:04:00* Test Item Value Reference Range Interpretation Comme nts WHITE BLOOD CELL COUNT (test code = 45151243) 5.6 Thousand/uL 3.8-10.8 N RED BLOOD CELL COUNT (test code = 20982403) 3.28 Million/uL 4.20-5.80 L HEMOGLOBIN (test code = 28519122) 8.5 g/dL 13.2-17.1 L HEMATOCRIT (test code = 69713380) 27.4 % 38.5-50.0 L MCV (test code = 15735998) 83.5 fL 80.0-100.0 N MCH (test code = 91568564) 25.9 pg 27.0-33.0 L MCHC (test code = 58192037) 31.0 g/dL 32.0-36.0 L RDW (test code = 50277171) 17.0 % 11.0-15.0 H PLATELET COUNT (test code = 50966951) 597 Thousand/uL 140-400 H MPV (test code = 84626631) 11.0 fL 7.5-12.5 N ABSOLUTE NEUTROPHILS (test code = 32937981) 2229 cells/uL 5080-0966 N ABSOLUTE LYMPHOCYTES (test code = 46258189) 2498 cells/uL 850-3900 N ABSOLUTE MONOCYTES (test cod e = 56206977) 734 cells/uL 200-950 N ABSOLUTE EOSINOPHILS (test code = 70033671) 112 cells/uL 15-500 N ABSOLUTE BASOPHILS (test cod e = 54971035) 28 cells/uL 0-200 N NEUTROPHILS (test code = 92334543) 39.8 % N LYMPHOCYTES (test code = 31016039) 44.6 % N MONOCYTES (test code = 73056105) 13.1 % N EOSINOPHILS (test code = 49281021) 2.0 % N BASOPHILS (test code = 11144023) 0.5 % N [facility] [id number] 18:58:00* Test Item Value Reference Range Interpretation Comme nts HEMOGLOBIN A1c (test code = 39513522) 5.5 % of total Hgb <5.7 N For the purpose of screening for the presence ofdiabetes: <5.7% Consistent with the absence of diabetes5.7-6.4% Consistent with increased risk for diabetes (prediabetes)> or =6.5% Consistent with diabetes This assay result is consistent with a decreased riskof diabetes. Currently, no consensus exists regarding use ofhemoglobin A1c for diagnosis of diabetes in children. According to [place] [employer] Association (ADA)guidelines, hemoglobin A1c <7.0% represents optimalcontrol in non- diabetic patients. Differentmetrics may apply to specific patient populations. Standards of Medical Care in Diabetes(ADA). [facility] MET [id number] 15:22:00* Test Item Value Reference Range Interpretation Comme nts GLUCOSE (test code = 46979511) 100 mg/dL 65-99 H Fasting referenc e interval For someone without known diabetes, a glucose valuebetween 100 and 125 mg/dL is consistent withprediabetes and should be confirmed with afollow-up test. UREA NITROGEN (BUN) (test code = 98659380) 12 mg/dL 7-25 N CREATININE (test code = 29651836) 0.77 mg/dL 0.70-1.35 N EGFR (test code = 89462633) 98 mL/min/1.73m2 >=60 N BUN/CREATININE RATIO (test code = 17728119) SEE NOTE: (calc) 6-22 N Not Reported: BUN an d Creatinine are within reference range. SODIUM (test code = 83438042) 134 mmol/L 135-146 L POTASSIUM (test code = 87859891) 4.5 mmol/L 3.5-5.3 N CHLORIDE (test code = 31760027) 96 mmol/L 98-110 L CARBON DIOXIDE (test code = 75433156) 25 mmol/L 20-32 N CALCIUM (test code = 82965404) 9.1 mg/dL 8.6-10.3 N [facility] (DIFF/PLT)2023-05-19 15:22:00* Test Item Value Reference Range Interpretation Comme nts WHITE BLOOD CELL COUNT (test code = 97382443) 8.9 Thousand/uL 3.8-10.8 N RED BLOOD CELL COUNT (test code = 92280670) 3.08 Million/uL 4.20-5.80 L HEMOGLOBIN (test code = 01513480) 8.0 g/dL 13.2-17.1 L HEMATOCRIT (test code = 70082931) 26.0 % 38.5-50.0 L MCV (test code = 43850370) 84.4 fL 80.0-100.0 N MCH (test code = 70859463) 26.0 pg 27.0-33.0 L MCHC (test code = 59011962) 30.8 g/dL 32.0-36.0 L RDW (test code = 46772210) 17.7 % 11.0-15.0 H PLATELET COUNT (test code = 34617718) 388 Thousand/uL 140-400 N MPV (test code = 35260992) 11.2 fL 7.5-12.5 N ABSOLUTE NEUTROPHILS (test code = 93767896) 4859 cells/uL 8127-5625 N ABSOLUTE LYMPHOCYTES (test code = 31861694) 2715 cells/uL 850-3900 N ABSOLUTE MONOCYTES (test cod e = 54421671) 1210 cells/uL 200-950 H ABSOLUTE EOSINOPHILS (test code = 43449850) 89 cells/uL 15-500 N ABSOLUTE BASOPHILS (test cod e = 64516471) 27 cells/uL 0-200 N NEUTROPHILS (test code = 59594524) 54.6 % N LYMPHOCYTES (test code = 59737206) 30.5 % N MONOCYTES (test code = 60229380) 13.6 % N EOSINOPHILS (test code = 89708603) 1.0 % N BASOPHILS (test code = 56232210) 0.3 % N [facility] [id number] 16:31:00* Test Item Value Reference Range Interpretation Comme nts GLUCOSE (test code = 52265473) 127 mg/dL 65-99 H Fasting referenc e interval For someone without known diabetes, a glucosevalue >125 mg/dL indicates that they may havediabetes and this should be confirmed with afollow-up test. UREA NITROGEN (BUN) (test code = 53189794) 15 mg/dL 7-25 N CREATININE (test code = 66323615) 0.84 mg/dL 0.70-1.35 N EGFR (test code = 77564285) 96 mL/min/1.73m2 >=60 N BUN/CREATININE RATIO (test code = 42626462) SEE NOTE: (calc) 6-22 N Not Reported: BUN and Creatinine are within reference range. SODIUM (test code = 96637018) 137 mmol/L 135-146 N POTASSIUM (test code = 24713265) 4.7 mmol/L 3.5-5.3 N CHLORIDE (test code = 95171760) 105 mmol/L 98-110 N CARBON DIOXIDE (test code = 71770804) 25 mmol/L 20-32 N CALCIUM (test code = 94829514) 8.8 mg/dL 8.6-10.3 N PROTEIN, TOTAL (test code = 96001916) 6.1 g/dL 6.1-8.1 N ALBUMIN (test code = 77406283) 3.3 g/dL 3.6-5.1 L GLOBULIN (test code = 71165519) 2.8 g/dL (calc) 1.9-3.7 N ALBUMIN/GLOBULIN RATIO (test code = 49974145) 1.2 (calc) 1.0-2.5 N BILIRUBIN, TOTAL (test code = 93231688) 0.4 mg/dL 0.2-1.2 N ALKALINE PHOSPHATASE (test code = 51280672) 84 U/L 35-144 N AST (test code = 18153744) 29 U/L 10-35 N ALT (test code = 70802232) 37 U/L 9-46 N [facility] WITH [id number] 16:31:00* Test Item Value Reference Range Interpretation Comme nts INR (test code = 88966384) 1.0 N Reference Range 0.9-1.1Moderate-intensity Warfarin Therapy 2.0-3.0Higher-intensity Warfarin Therapy 3.0-4.0 PT (test code = 67205892) 10.6 sec 9.0-11.5 N For additional information, please refer [email or web address] (This link is being provided for informational/educational purposes only.) [facility]PLT[facility]2023-05-18 16:31:00* Test Item Value Reference Range Interpretation Comme nts WHITE BLOOD CELL COUNT (test code = 10736235) 10.0 Thousand/uL 3.8-10.8 N RED BLOOD CELL COUNT (test code = 75270628) 2.95 Million/uL 4.20-5.80 L HEMOGLOBIN (test code = 96256820) 7.8 g/dL 13.2-17.1 L HEMATOCRIT (test code = 44122819) 24.7 % 38.5-50.0 L MCV (test code = 89091847) 83.7 fL 80.0-100.0 N MCH (test code = 56664163) 26.4 pg 27.0-33.0 L MCHC (test code = 88048594) 31.6 g/dL 32.0-36.0 L RDW (test code = 02320679) 17.7 % 11.0-15.0 H PLATELET COUNT (test code = 05128028) 343 Thousand/uL 140-400 N MPV (test code = 57167369) 11.9 fL 7.5-12.5 N ABSOLUTE NEUTROPHILS (test code = 49468650) 5150 cells/uL 9437-2315 N ABSOLUTE LYMPHOCYTES (test code = 83850011) 3180 cells/uL 850-3900 N ABSOLUTE MONOCYTES (test code = 86146888) 1550 cells/uL 200-950 H ABSOLUTE EOSINOPHILS (test code = 02850450) 90 cells/uL 15-500 N ABSOLUTE BASOPHILS (test code = 52293338) 30 cells/uL 0-200 N NEUTROPHILS (test code = 85598991) 51.5 % N LYMPHOCYTES (test code = 43751750) 31.8 % N MONOCYTES (test code = 18140436) 15.5 % N EOSINOPHILS (test code = 76723804) 0.9 % N BASOPHILS (test code = 77750888) 0.3 % N [facility]
[2024-01-05] MEDS ORDERED: NA CHLORIDE 0.9% 1,000 ML ONE (06:58)
[2024-01-05 07:08] LABS: Absolute Lymphocytes (CBC) 1.4 K/uL (0.7-4.9); Absolute Monocytes 2.9 K/uL (0.1-1.3); Absolute Neutrophil 17.3 K/uL (1.8-8.0); Basophils % 0.1 % (0-1.3); Eosinophils % 0.1 % (0-4.4); Hematocrit 38.7 % (39.6-49.0); Hemoglobin 12.8 g/dL (13.6-17.9); Lymphocytes % 6.5 % (15.3-44.8); MCH 27.4 pg (27.0-35.0); MCHC 32.9 g/dL (32.0-36.0); MCV 83.4 fL (80-100); MPV 8.4 fL (7.6-11.3); Monocytes % 13.2 % (3.3-12.3); Neutrophils % 80.1 % (41.7-73.7); Nucleated Red Blood Cells % 0.1 % (0-0); Platelets 220 thou/uL (152-406); RBC Red Blood Cell Count 4.65 M/uL (4.33-5.43); Red Cell Distribution Width 18.2 % (12.1-15.2)
[2024-01-05 07:14] LABS: PT Prothrombin Time 13.5 SECONDS (9.4-12.5); PTT, Activated Partial Thromb 30.9 SECONDS (24.3-36.9); Protime INR 1.23
[2024-01-05 07:24] LABS: Albumin/Globulin Ratio 0.8 (1.1-1.8); Anion Gap 10.2 mEq/L (5.0-15.0); Bilirubin Total 1.4 mg/dL (0.2-1.0); Potassium 4.2 mEq/L (3.5-5.1); Troponin High Sensitivity 13.3 pg/mL (<58.9)
[2024-01-05] MEDS ORDERED: VANCOMYCIN 1 GM/VIAL ONE (08:00)
[2024-01-05] MEDS ORDERED: VANCOMYCIN 500 MG/VIAL ONE (08:01)
[2024-01-05] MEDS ORDERED: CEFEPIME 2 GM VIAL ONE (08:01)
[2024-01-05] MEDS ORDERED: NA CHLORIDE 0.9% 100 ML ONE ×2 (08:01→08:54)
[2024-01-05] MEDS ORDERED: NA CHLORIDE 0.9% 250 ML ONE (08:01)
--- NOTE | 2024-01-05 08:02 | RAD REPORT ---
EXAM DESCRIPTION: CT - Head Brain Wo Cont - 01/05/2024 7:20 am CLINICAL HISTORY: SEIZURE Headache, drowsiness COMPARISON: Head Brain Wo Cont dated 05/07/2023; Head Brain Wo Cont dated 09/06/2022; Chest Abdomen P zeinab W Cont dated 01/05/2024 TECHNIQUE: All CT scans are performed using dose optimization technique as appropriate and may inclu de automated exposure control or mA/KV adjustment according to patient size. FINDINGS: Very small focus of hyperdensity is seen along the left subdural space measuring 7 mm is n oted (image 20/35).Postsurgical changes are noted left cerebral hemisphere with moderate gliosis in t he left frontal region.No areas of brain edema or evidence of midline shift. The paranasal sinuses and mastoids are clear. IMPRESSION: 7 mm focus of hyperdensity along the left subdural space as detailed could be a small am ount of blood. No midline shift is seen. Postsurgical changes are seen on the left with left frontal gliosis.
--- NOTE | 2024-01-05 08:05 | RAD REPORT ---
EXAM DESCRIPTION: CT - Chest Abdomen Pelvis W Cont - 01/05/2024 7:20 am CLINICAL HISTORY: Chest and abdomen pain. abd pain post op GB + herenia;Productive cough COMPARISON: No comparisons TECHNIQUE: Approximately 100 mL nonionic IV contrast was administered to the patient. All CT scans are performed using dose optimization technique as appropriate and may include automated exposure control or mA/KV adjustment according to patient size. FINDINGS: Moderate atelectasis is present in both posterior lung bases.Small hiatal hernia.No pleura l or pericardial effusion.No intrathoracic adenopathy.Mild cardiomegaly. Mild diffuse fatty liver is present. Cholecystectomy clips. The spleen, pancreas, adrenal glands and left kidney are normal. Right kidney contains a cyst superiorly measuring 5.3 cm. No bowel obstruction, free air, free fluid or abscess. Normal appendix. Prominent sigmoid diverticulo sis coli of the sigmoid colon is present. No diverticulitis is seen. No pathologic lymphadenopathy in the abdomen or pelvis. Moderate fat containing left inguinal hernia. No worrisome osseous finding. IMPRESSION: Moderate atelectasis in both lung bases is present posteriorly. Mild fatty liver. Prominent sigmoid diverticulosis coli without diverticulitis. Recommend nonemergent follow-up colonos copy if not recently performed.
[2024-01-05 08:24] LABS: Blood Morphology Comment NOT SEEN (NOT SEEN); Platelet Estimate ADEQ; White Blood Cell Scan OK (OK)
[2024-01-05] MEDS ORDERED: LEVETIRACETAM 500 MG/5 ML VIAL IV ONE (08:54)
--- NOTE | 2024-01-05 09:29 | EDPHYS ---
Physician Documentation [facility] Name: Mason Downey Age: 68 yrs Sex: Male : 1955 Arrival Date: 01/05/2024 Time: 05:52 Bed 6 Private MD: ED Physician Dilcia Shearer HPI: 01/04 06:37 This 68 yrs old Male presents to ER via Unassigned with unknown complaint. sp3 06:37 68-year-old male with history of CHF, intracranial hemorrhage April 2023, and now sp3 postop day 1 from cholecystectomy and umbilical hernia repair by Dr. Manning who now presents to the ED with chief complaint seizure, altered mental status, shortness of breath and continued abdominal pain since surgery. EMS reports 101 Fahrenheit fever. Family also reports that he had multiple episodes of emesis prior to discharge yesterday after the surgery. Unknown if patient has aspirated. Patient currently states he is weak and does not remember the seizure event. Dried blood and tongue laceration reported. He currently denies headache, neck pain, chest pain but does endorse shortness of breath and continued postsurgical abdominal pain. No peripheral edema noted. No rash or bleeding. No prior history of seizures. Review of systems otherwise negative.. Historical: - Allergies: 06:21 Aleve; ha1 06:21 Aspirin; ha1 06:21 NSAIDS; ha1 09:03 Lisinopril; kc6 - PMHx: 06:21 GERD; Hypertensive disorder; brain bleed (June 2023); ha1 - PSHx: 06:21 Cholecystectomy; ha1 - Immunization history:: Adult Immunizations up to date. - Infectious Disease History:: Denies. - Social history:: Smoking status: Patient denies any tobacco usage or history of. ROS: 06:40 Constitutional: Negative for fever, chills, and weight loss, Eyes: Negative for injury, sp3 pain, redness, and discharge, Neck: Negative for injury, pain, and swelling, Cardiovascular: Negative for chest pain, palpitations, and edema, Back: Negative for injury and pain, MS/Extremity: Negative for injury and deformity, Skin: Negative for injury, rash, and discoloration, Psych: Negative for depression, anxiety, suicide ideation, homicidal ideation, and hallucinations, Allergy/Immunology: Negative for hives, rash, and allergies, Endocrine: Negative for neck swelling, polydipsia, polyuria, polyphagia, and marked weight changes, 06:40 All other systems are negative, Exam: 06:40 Constitutional: This is a well developed, well nourished patient who is awake, alert, sp3 and in no acute distress. Head/Face: Normocephalic, atraumatic. Eyes: Pupils equal round and reactive to light, extra-ocular motions intact. Lids and lashes normal. Conjunctiva and sclera are non-icteric and not injected. Cornea within normal limits. Periorbital areas with no swelling, redness, or edema. Neck: Trachea midline, no thyromegaly or masses palpated, and no cervical lymphadenopathy. Supple, full range of motion without nuchal rigidity, or vertebral point tenderness. No Meningismus. Chest/axilla: Normal chest wall appearance and motion. Nontender with no deformity. No lesions are appreciated. Back: No spinal tenderness. No costovertebral tenderness. Full range of motion. Skin: Warm, dry with normal turgor. Normal color with no rashes, no lesions, and no evidence of cellulitis. MS/ Extremity: Pulses equal, no cyanosis. Neurovascular intact. Full, normal range of motion. Neuro: Awake and alert, GCS 15, oriented to person, place, time, and situation. Cranial nerves II-XII grossly intact. Motor strength 5/5 in all extremities. Sensory grossly intact. Cerebellar exam normal. Normal gait. Psych: Awake, alert, with orientation to person, place and time. Behavior, mood, and affect are within normal limits. 06:40 Respiratory: Small tongue laceration noted without need for repair with dried blood in the mouth. Coarse breath sounds bilaterally. Abdomen soft diffusely tender without peritoneal signs, distention rebound or guarding. Patient tachycardic in the 115 range., 06:48 ECG was reviewed by the Attending Physician. EKG demonstrates sinus tachycardia at 105 sp3 bpm with normal intervals, normal QRS, slightly leftward axis and nonspecific diffuse ST's ST changes without evidence of acute ischemia. Vital Signs: 06:43 BP 119 / 76; Pulse 102; Resp 20; Temp 99.8; Pulse Ox 94% on 3 lpm NC; Weight 79 kg; rg5 Pain 4/10; 07:33 BP 139 / 79; Pulse 93; Resp 18 S; Pulse Ox 98% on 5 lpm NC; kc6 07:45 BP 126 / 74; Pulse 90; Resp 14; Pulse Ox 100% on 5 lpm NC; db 08:00 BP 127 / 75; Pulse 87; Resp 15; Pulse Ox 100% on NC; db 08:15 BP 124 / 88; Pulse 86; Resp 14; Pulse Ox 100% on 5 lpm NC; db 08:30 BP 130 / 80; Pulse 86; Resp 16; Pulse Ox 100% on 5 lpm NC; db 09:06 BP 154 / 85; Pulse 87; Resp 16 S; Temp 98.7(O); Pulse Ox 97% on 4 lpm NC; kc6 10:16 BP 136 / 70; Pulse 87; Resp 17 S; Pulse Ox 97% on 4 lpm NC; kc6 06:43 Pain Scale: Adult rg5 NIH Stroke Scale Scores: 09:04 NIHSS Score: 0 kc6 MDM: 06:36 Patient medically screened. sp3 06:41 Data reviewed: vital signs, nurses notes, EMS record, old medical records, lab test sp3 result(s), EKG, radiologic studies. ED course: 68-year-old male with PMH above now status post op day 1 from cholecystectomy and umbilical hernia repair by Dr. Manning now with new onset seizure, shortness of breath, dyspnea and postsurgical abdominal pain. Differential diagnosis includes electrolyte abnormality inducing seizure, recurrent intracranial hemorrhage, pneumonia, aspiration pneumonia, sepsis, other intra-abdominal postsurgical complication, among others. Workup will be broad and will include CT scan of the head, CT scan of the chest abdomen pelvis with IV contrast, laboratory values putting lactate, urine analysis and general supportive care. Fluid bolus also ordered. Will hold on antibiotics till workup is complete. Patient will be signed out to daytime physician for reevaluation and final disposition with probable admission and/or consult to Dr. Manning.. 09:25 Management of patient was discussed with the following: [employer] Investigator: 68-year-old gb1 male status post cholecystectomy with hiatal hernia repair yesterday by Dr. Manning presented with an acute seizure with a tongue laceration. On CT scan of the brain it does show a subdural hematoma which is concerning for possible residual from a subdural in April 2023, however with the patient's clinical presentation today I have to presume that it is a new focal hemorrhage in the left subdural space. I discussed the case with Dr. Mendiola the accepting emergency physician [facility] as well as Dr. Lennon the neuro ICU clinical medical transcriptionist. The patient has been loaded with IV Keppra and will be transported to [facility] emergency department by ambulance. I have updated the family at the bedside and they are compliant with the plan of care moving forward.. 09:25 Management of patient was discussed with the following: [employer] Investigator: Another gb1 consideration as the patient did have general anesthesia yesterday which may have possibly lowered the seizure threshold at that chronic subdural focus.. 01/04 06:36 Order name: Blood Culture Adult (2) sp3 01/04 06:36 Order name: CBC with Diff; Complete Time: 08:39 sp3 01/04 06:36 Order name: CMP; Complete Time: 07:41 sp3 01/04 06:36 Order name: Lactate w/ 2H reflex if indic.; Complete Time: 08:39 3 01/04 06:36 Order name: Protime (+inr); Complete Time: 07:41 sp3 01/04 06:36 Order name: Ptt, Activated; Complete Time: 07:41 sp3 01/04 06:56 Order name: BNP; Complete Time: 07:41 sp3 01/04 06:57 Order name: Troponin High Sensitivity; Complete Time: 07:41 EDMS 01/04 07:18 Order name: CBC Smear Scan; Complete Time: 08:39 EDMS 01/04 09:42 Order name: Ghost Lactate-NO COLLECT Timer EDMS 01/04 06:36 Order name: CT Chest, Abdomen, Pelvis - W/Contrast; Complete Time: 08:39 sp3 01/04 06:36 Order name: CT Head Brain wo Cont; Complete Time: 08:39 sp3 01/04 06:36 Order name: EKG; Complete Time: 06:37 sp3 01/04 06:36 Order name: Cardiac monitoring; Complete Time: 06:49 sp3 01/04 06:36 Order name: EKG - Nurse/Tech; Complete Time: 06:49 sp3 01/04 06:36 Order name: IV Saline Lock - Large Bore; Complete Time: 06:42 sp3 01/04 06:36 Order name: Labs collected and sent; Complete Time: 06:49 sp3 01/04 06:36 Order name: O2 Per Protocol; Complete Time: 06:42 sp3 01/04 06:36 Order name: O2 Sat Monitoring; Complete Time: 06:42 sp3 01/04 06:36 Order name: Vital Signs; Complete Time: 06:49 sp3 01/04 06:36 Order name: NPO; Complete Time: 06:49 sp3 01/04 06:36 Order name: Seizure Precautions; Complete Time: 06:49 sp3 Administered Medications: 06:57 Drug: NS 0.9% IV (30 ml/kg) 30 ml/kg IV at bolus once; Sepsis Protocol Route: IV; Rate: ha1 bolus; Site: left antecubital; 08:52 Follow up: Response: No adverse reaction; IV Status: Completed infusion; IV Intake: kc6 2000ml 08:16 Drug: vancoMYCIN IVPB 20 mg/kg IVPB once; once over 2 hours; not to exceed 2 grams; kc6 (mix in 250 to 500mL NS) Route: IVPB; Site: left antecubital; 09:26 Follow up: Response: No adverse reaction; IV Status: Completed infusion; IV Intake: kc6 250ml 08:16 Drug: Cefepime IVPB 2 grams IVPB at 200 ml/hr once over 30 mins; (mix in NS 100 mL) kc6 Route: IVPB; Rate: 200 ml/hr; Infused Over: 30 mins; Site: right antecubital; 08:51 Follow up: Response: No adverse reaction; IV Status: Completed infusion; IV Intake: kc6 100ml 09:03 Drug: Keppra IV 1500 mg IV at bolus once Route: IV; Rate: bolus; Site: right hand; kc6 09:26 Follow up: Response: No adverse reaction; IV Status: Completed infusion; IV Intake: kc6 100ml Disposition: 09:25 Co-signature as Attending Physician, Dilcia Shearer MD. gb1 Disposition Summary: 01/05/24 09:29 Transfer Ordered Notes: Transfer Location: [facility] gb1 Reason: Higher level of care gb1 Condition: Fair gb1 Problem: new gb1 Symptoms: are unchanged gb1 Accepting Physician: Dr. Dariusz Mendiola(01/05/24 10:20) kc6 Diagnosis - Nontraumatic subdural hemorrhage, unspecified gb1 - Other seizures gb1 Forms: - Medication Reconciliation Form gb1 - SBAR form gb1 Critical care time excluding procedures: 09:25 Critical care time: Bedside Care: 45 minutes, Consultation: 60 minutes, Family gb1 Intervention: 20 minutes. Total time: 125 minutes NIH Stroke Scale - NIH Stroke Score Date: 01/05/2024 Time: 09:04 Total Score = 0 10. Dysarthria (speech clarity - read or repeat words) - 0(Normal) 11. Extinction and Inattention (visual/tactile/auditory/spatial/personal) - 0(No abnormality) 1a. Level of Consciousness (LOC) - 0(Alert) 1b. Level of Consciousness (LOC) (Month \T\ Age) - 0(Both) 1c. LOC Commands (Open \T\ Closes Eyes/Cross Roller) - 0(Both) 2. Best Gaze (Lateral Gaze Paresis) - 0(Normal) 3. Visual Field Loss - 0(No visual loss) 4. Facial Palsy - 0(Normal) 5a. Left Arm: Motor (10-second hold) - 0(No drift) 5b. Right Arm: Motor (10-second hold) - 0(No drift) 6a. Left Leg: Motor (5-second hold - always test supine) - 0(No drift) 6b. Right Leg: Motor (5-second hold - always test supine) - 0(No drift) 7. Limb Ataxia (finger/nose \T\ heel/betancourt - test with eyes open) - 0(Absent) 8. Sensory Loss (pinprick arms/legs/face) - 0(Normal) 9. Best Language: Aphasia (description/naming/reading) - 0(No aphasia) Initials: kc6 Signatures: Dispatcher [employer] EDMS Braden Chávez MD MD sp3 Geeta Waldrop RN RN ha1 Nanette Krause RN RN kc6 Dilcia Shearer MD MD gb1 Corrections: (The following items were deleted from the chart) 06:37 06:37 BLOOD CULTURE*+BA.LAB.BRZ ordered. EDMS EDMS 06:37 06:37 CBC+H.LAB.BRZ ordered. EDMS EDMS 06:37 06:37 COMPREHENSIVE METABOLIC PANEL+C.LAB.BRZ ordered. EDMS EDMS 06:37 06:37 LACTATE+C.LAB.BRZ ordered. EDMS EDMS 06:37 06:37 PROTIME (+INR)+COAG.LAB.BRZ ordered. EDMS EDMS 06:37 06:37 PTT, ACTIVATED+COAG.LAB.BRZ ordered. EDMS EDMS 06:37 06:37 Urinalysis+U.LAB.BRZ ordered. EDMS EDMS 06:56 06:40 Troponin High Sensitivity+C.LAB.BRZ ordered. EDMS EDMS 09:04 06:21 Allergies: Tylenol; ha1 kc6 10:20 09:29 Dr. Dariusz Mendiola gb1 kc6
--- NOTE | 2024-01-05 09:29 | ER ---
Nurse's Notes [facility] Name: Mason Downey Age: 68 yrs Sex: Male : 1955 Arrival Date: 01/05/2024 Time: 05:52 Bed 6 Private MD: Diagnosis: Nontraumatic subdural hemorrhage, unspecified;Other seizures Presentation: 01/04 06:21 Chief complaint: EMS states: Family members report he was shaking a lot and biting his 1 tongue. after he became shortness of breath, diaphoretic, and vomiting. Elevated temperature at 101.1. had surgery yesterday of hernia repair and gallbladder removal. On our arrival oxygen saturation at 80% in room air. oxygen saturation at 95% on nonrebreather. 06:21 Coronavirus screen: Vaccine status:. Ebola Screen: No symptoms or risks identified at [facility] this time. Initial Sepsis Screen: Does the patient meet any 2 criteria? No. Patient's initial sepsis screen is negative. Does the patient have a suspected source of infection? No. Patient's initial sepsis screen is negative. Risk Assessment: Do you want to hurt yourself or someone else? Patient reports no desire to harm self or others. Onset of symptoms was January 05, 2024. 06:21 Method Of Arrival: EMS: [facility] 06:21 Acuity: MADIHA 2 ha1 Historical: - Allergies: 06:21 Aleve; ha1 06:21 Aspirin; ha1 06:21 NSAIDS; ha1 09:03 Lisinopril; kc6 - PMHx: 06:21 GERD; Hypertensive disorder; brain bleed (June 2023); ha1 - PSHx: 06:21 Cholecystectomy; ha1 - Immunization history:: Adult Immunizations up to date. - Infectious Disease History:: Denies. - Social history:: Smoking status: Patient denies any tobacco usage or history of. Screenin:21 Abuse screen: Denies threats or abuse. Denies injuries from another. Nutritional ha1 screening: No deficits noted. Tuberculosis screening: No symptoms or risk factors identified. 06:21 [facility] ED Fall Risk Assessment (Adult) History of falling in the last 3 months, [facility] including since admission Yes- single mechanical fall (1 pt) Confusion or Disorientation Yes (5 pts) Intoxicated or Sedated No (0 pts) Impaired Gait Yes (1 pt) Mobility Assist Device Used Yes (1 pt) Altered Elimination Score/Fall Risk Level 3 or more points = High Risk Oriented to surroundings, Maintained a safe environment, Educated pt \T\ family on fall prevention, incl call for assistance when getting out of bed, Hourly rounding (assess needs \T\ fall precautionary measures) done. 09:04 VAN Screening: Arm Drift: Patient shows no arm weakness. Patient is VAN negative. kc6 Visual Disturbance: No visual disturbance noted. Aphasia: No aphasia noted. Neglect: No neglect noted. Marzena Swallow Protocol Brief Cognitive Screen What is your name? Normal, Where are you right now? Normal, What year is it? Normal. Oral Mechanism Examination Facial Symmetry: Normal, Motion: Normal, Lip Closure: Normal, Oral Mechanism Result: Normal. 3 oz Water Swallow Challenge: Pt able to drink all water without stopping, coughing, choking or throat clearing: Yes Result: PASS MD Notified: Dilcia Shearer MD. Assessment: 07:32 General: Appears in no apparent distress. comfortable, well groomed, well developed, kc6 Behavior is calm, cooperative, appropriate for age. Pain: Denies pain. Neuro: Level of Consciousness is awake, alert, obeys commands, Oriented to person, place, time, situation, Appropriate for age Research Rn Spec are equal bilaterally Moves all extremities. Full function Speech is normal, Facial symmetry appears normal, Pupils are PERRLA, Intact Babinski is positive Seizure activity reported prior to arrival. Cardiovascular: Capillary refill < 3 seconds. Respiratory: Airway is patent Trachea midline Respiratory effort is even, unlabored, Respiratory pattern is regular, symmetrical. GI: No signs and/or symptoms were reported involving the gastrointestinal system. : No signs and/or symptoms were reported regarding the genitourinary system. EENT: No signs and/or symptoms were reported regarding the EENT system. Derm: Skin is healthy with good turgor, Skin is dry, Skin is normal, Skin temperature is warm Wound noted right upper quadrant and right lower quadrant Wound is clean and dry, without redness, swelling or drainage. gauze dressing with tape in place. Musculoskeletal: No signs and/or symptoms reported regarding the musculoskeletal system. Circulation, motion, and sensation intact. Capillary refill < 3 seconds, Range of motion: intact in all extremities. 08:32 Reassessment: Patient appears in no apparent distress at this time. No changes from kc6 previously documented assessment. Patient and/or family updated on plan of care and expected duration. Pain level reassessed. Patient is alert, oriented x 3, equal unlabored respirations, skin warm/dry/pink. 08:52 Reassessment: Dr. Manning \T\ Dr. Shearer at bedside speaking with pt and family. kc6 09:32 Reassessment: Patient appears in no apparent distress at this time. No changes from kc6 previously documented assessment. Patient and/or family updated on plan of care and expected duration. Pain level reassessed. Patient is alert, oriented x 3, equal unlabored respirations, skin warm/dry/pink. 09:46 Reassessment: nurse to nurse report given to JOSE M Gonzalez at [facility]. kc6 10:16 Reassessment: Patient appears in no apparent distress at this time. No changes from kc6 previously documented assessment. Patient and/or family updated on plan of care and expected duration. Pain level reassessed. Patient is alert, oriented x 3, equal unlabored respirations, skin warm/dry/pink. Vital Signs: 06:43 BP 119 / 76; Pulse 102; Resp 20; Temp 99.8; Pulse Ox 94% on 3 lpm NC; Weight 79 kg; rg5 Pain 4/10; 07:33 BP 139 / 79; Pulse 93; Resp 18 S; Pulse Ox 98% on 5 lpm NC; kc6 07:45 BP 126 / 74; Pulse 90; Resp 14; Pulse Ox 100% on 5 lpm NC; db 08:00 BP 127 / 75; Pulse 87; Resp 15; Pulse Ox 100% on NC; db 08:15 BP 124 / 88; Pulse 86; Resp 14; Pulse Ox 100% on 5 lpm NC; db 08:30 BP 130 / 80; Pulse 86; Resp 16; Pulse Ox 100% on 5 lpm NC; db 09:06 BP 154 / 85; Pulse 87; Resp 16 S; Temp 98.7(O); Pulse Ox 97% on 4 lpm NC; kc6 10:16 BP 136 / 70; Pulse 87; Resp 17 S; Pulse Ox 97% on 4 lpm NC; kc6 06:43 Pain Scale: Adult rg5 NIH Stroke Scale Scores: 09:04 NIHSS Score: 0 kc6 ED Course: 06:21 Patient arrived in ED. kmf 06:21 Patient has correct armband on for positive identification. Placed in gown. Bed in low ha1 position. Call light in reach. Side rails up X 1. 06:36 Braden Chávez MD is Attending Physician. sp3 06:46 Triage completed. ha1 06:53 First set of blood cultures drawn. oe 06:57 CMP Sent. ha1 06:57 CBC with Diff Sent. ha1 06:57 Protime (+inr) Sent. ha1 06:57 Ptt, Activated Sent. ha1 07:00 Oxygen administration via nasal cannula \T\ 5L/min. kc6 07:00 Report received from Geeta Waldrop RN \T\ JOSE M Levi. kc6 07:00 shelter monitor on. Pulse ox on. NIBP on. Door closed. Noise minimized. Lights dimmed. kc6 Pillow given. 07:00 Arm band placed on. kc6 07:07 Attending Physician role handed off by Braden Chávez MD gb1 07:07 Dilcia Shearer MD is Attending Physician. gb1 07:10 Second set of blood cultures drawn. oe 07:12 Inserted saline lock: 20 gauge in right hand, using aseptic technique. Blood collected. oe 07:13 Maintain EMS IV. Dressing intact. Gauge \T\ site: 18 gauge. oe 07:22 CT Chest, Abdomen, Pelvis - W/Contrast In Process Unspecified. EDMS 07:22 CT Head Brain wo Cont In Process Unspecified. EDMS 07:34 Nanette Krause, JOSE M is Primary Nurse. kc6 07:40 Notified ED physician of a critical lab result(s). lactate 3.1. kc6 10:16 No provider procedures requiring assistance completed. Patient transferred, IV remains kc6 in place. 10:17 Provided Education on: pt and family educated on need for transfer. kc6 Administered Medications: 06:57 Drug: NS 0.9% IV (30 ml/kg) 30 ml/kg IV at bolus once; Sepsis Protocol Route: IV; Rate: ha1 bolus; Site: left antecubital; 08:52 Follow up: Response: No adverse reaction; IV Status: Completed infusion; IV Intake: kc6 2000ml 08:16 Drug: vancoMYCIN IVPB 20 mg/kg IVPB once; once over 2 hours; not to exceed 2 grams; kc6 (mix in 250 to 500mL NS) Route: IVPB; Site: left antecubital; 09:26 Follow up: Response: No adverse reaction; IV Status: Completed infusion; IV Intake: kc6 250ml 08:16 Drug: Cefepime IVPB 2 grams IVPB at 200 ml/hr once over 30 mins; (mix in NS 100 mL) kc6 Route: IVPB; Rate: 200 ml/hr; Infused Over: 30 mins; Site: right antecubital; 08:51 Follow up: Response: No adverse reaction; IV Status: Completed infusion; IV Intake: kc6 100ml 09:03 Drug: Keppra IV 1500 mg IV at bolus once Route: IV; Rate: bolus; Site: right hand; kc6 09:26 Follow up: Response: No adverse reaction; IV Status: Completed infusion; IV Intake: kc6 100ml Medication: 10:17 VIS not applicable for this client. kc6 Intake: 08:51 IV: 100ml; Total: 100ml. kc6 08:52 IV: 2000ml; Total: 2100ml. kc6 09:26 IV: 100ml; Total: 2200ml. kc6 09:26 IV: 250ml; Total: 2450ml. kc6 Outcome: 09:29 ER care complete, transfer ordered by . gb1 10:17 Transferred by ground EMS to [facility], Transfer form completed. kc6 Note: report called to JOSE M Gonzalez at [facility] 10:17 Condition: stable 10:17 Instructed on the need for transfer, 10:20 Patient left the ED. kc6 NIH Stroke Scale - NIH Stroke Score Date: 01/05/2024 Time: 09:04 Total Score = 0 10. Dysarthria (speech clarity - read or repeat words) - 0(Normal) 11. Extinction and Inattention (visual/tactile/auditory/spatial/personal) - 0(No abnormality) 1a. Level of Consciousness (LOC) - 0(Alert) 1b. Level of Consciousness (LOC) (Month \T\ Age) - 0(Both) 1c. LOC Commands (Open \T\ Closes Eyes/Surtass Analyst) - 0(Both) 2. Best Gaze (Lateral Gaze Paresis) - 0(Normal) 3. Visual Field Loss - 0(No visual loss) 4. Facial Palsy - 0(Normal) 5a. Left Arm: Motor (10-second hold) - 0(No drift) 5b. Right Arm: Motor (10-second hold) - 0(No drift) 6a. Left Leg: Motor (5-second hold - always test supine) - 0(No drift) 6b. Right Leg: Motor (5-second hold - always test supine) - 0(No drift) 7. Limb Ataxia (finger/nose \T\ heel/betancourt - test with eyes open) - 0(Absent) 8. Sensory Loss (pinprick arms/legs/face) - 0(Normal) 9. Best Language: Aphasia (description/naming/reading) - 0(No aphasia) Initials: kc6 Signatures: Dispatcher [employer] EDMS Santiago Alfred Setul, MD MD sp3 Geeta Waldrop RN RN ha1 Nanette Krause RN RN kc6 Keisha Reed RN Dilcia Haywood MD MD 1 Dana Anderson [facility] Ranjan Gil RN RN rg5 Corrections: (The following items were deleted from the chart) 06:59 06:21 Chief complaint: EMS states: Family members report he was shaking a lot ha1 and biting his tongue. after he became shortness of breath, diaphoretic, and vomiting. Elevated temperature at 101.1. had surgery yesterday of hernia repair and gallbladder removal. ha1 09:04 06:21 Allergies: Tylenol; ha1 kc6 09:06 07:32 Neuro: Level of Consciousness is awake, alert, obeys commands, Oriented [facility] to person, place, time, situation, Appropriate for age kc6 09:31 09:06 BP 154 / 85; Pulse 87bpm; Resp 16bpm; Spontaneous; Pulse Ox 97% 4 lpm kc6 Nasal Cannula; kc6
[2024-01-05 10:38] VITALS: BP 136/70; TEMP 98.7; O2SAT 97
--- NOTE | 2024-01-07 14:12 | EKG ---
Test Date: 2024-01-05 Test Time: 06:29:11 Dried Fruit Washer: APOLINAR MEASUREMENT RESULTS: Intervals: Rate: 104 IN: 154 QRSD: 82 QT: 330 QTc: 433 [place]: P: 56 IN: 154 QRS: -11 T: 37 INTERPRETIVE STATEMENTS: Sinus tachycardia Otherwise normal ECG Compared to ECG 01/04/2024 08:40:26 Sinus bradycardia no longer present Electronically Signed On 01-07-24 14:09:04 CDT by Rodríguez Horowitz
== END 2024-01-05 10:20 | disposition short-term general hospital (02) ==
LOC: ER 05:52
DX: I62.00 Nontraumatic subdural hemorrhage, unspecified (principal); G40.89 Other seizures; I10 Essential (primary) hypertension; K21.9 Gastro-esophageal reflux disease without esophagitis; Z98.890 Other specified postprocedural states; Z88.6 Allergy status to analgesic agent; Z88.8 Allergy status to other drugs, medicaments and biological substances
CPT/HCPCS: 93005; 87040 ×2; 85025; 36415; 85610; 83605; 85730; 84484; 80053; 83880; 70450; 71260; 74177; 99285; Q9967; J1953; J0692; J7050; J7030